=== PATIENT | female | born 1985 | race African-American/Black ===

== ENCOUNTER 2017-05-25 11:33 | Inpatient (IN) | payer OTHER ==
[~2017-05-25] VITALS: Ht 160 cm; Wt 72.6 kg
[2017-05-25 11:52] VITALS: BP 124/84
--- NOTE | 2017-05-25 12:43 | Diagnostic Imaging Report ---
Indication: Pain Technique: XRAY Chest 1v Comparison: None Findings: Heart size and mediastinal contours are within normal limits given technique. There is no focal consolidation, pneumothorax or pleural effusion. Osseous structures demonstrate no acute abnormality. Impression: No radiographic evidence of acute cardiopulmonary disease.
[2017-05-25 13:21] LABS: BASOPHILS % (AUTO) 1.3 % (0.0-2.0); EOSINOPHILS % (AUTO) 0.7 % (0.0-3.0); HEMATOCRIT 39.7 % (37.0-47.0); HEMOGLOBIN 13.6 G/DL (12.0-16.0); LYMPHOCYTES % (AUTO) 30.2 % (20.0-45.0); MEAN CORPUSCULAR VOLUME 86 FL (80-99); MONOCYTES % (AUTO) 8.4 % (1.0-10.0); NEUTROPHILS % (AUTO) 59.3 % (45.0-75.0); PLATELET COUNT 266 K/UL (150-450); RED BLOOD COUNT 4.63 M/UL (4.20-5.40); RED CELL DISTRIBUTION WIDTH 13.8 % (11.6-14.8)
[2017-05-25 13:22] LABS: APPEARANCE,URINE CLEAR; BILIRUBIN, URINE NEGATIVE (NEGATIVE); GLUCOSE, URINE (UA) NEGATIVE (NEGATIVE); KETONES,URINE NEGATIVE (NEGATIVE); LEUKOCYTE ESTERASE ,URINE 1+ (NEGATIVE); NITRITE,URINE NEGATIVE (NEGATIVE); PH,URINE 6 (4.5-8.0); PROTEIN,URINE NEGATIVE (NEGATIVE); UROBILINOGEN,URINE NORMAL MG/DL (0.0-1.0)
[2017-05-25 13:26] LABS: COLOR,URINE YELLOW
[2017-05-25 13:30] LABS: ANION GAP 7 mmol/L (5-15); BLOOD UREA NITROGEN 10 mg/dL (7-18); CALCIUM 9.3 MG/DL (8.5-10.1); CARBON DIOXIDE 28 MMOL/L (21-32); CHLORIDE 104 MMOL/L (98-107); CREATININE 0.8 MG/DL (0.55-1.30); POTASSIUM 3.5 MMOL/L (3.5-5.1); SODIUM 139 MMOL/L (136-145)
[2017-05-25 13:44] LABS: ALANINE AMINOTRANSFERASE 19 U/L (12-78); ALBUMIN 3.6 G/DL (3.4-5.0); ALBUMIN/GLOBULIN RATIO 0.9 (1.0-2.7); ALKALINE PHOSPHATASE 49 U/L (46-116); ASPARTATE AMINO TRANSFERASE 21 U/L (15-37); BILIRUBIN,TOTAL 0.3 MG/DL (0.2-1.0); CKMB < 0.5 NG/ML (0.0-3.6); CREATINE KINASE 170 U/L (26-308)
--- NOTE | 2017-05-25 14:39 | Emergency Room Report ---
History of Present Illness General Chief Complaint: Lower Back Pain or Injury Source: Patient Present Illness HPI Patient present with complaints of pain to the buttock area Patient had injections several years ago However recently has been having increased redness and discomfort Pain is 5/10 Denies any chest pressures of breath patient had questionable low-grade fevers Pain is worse with sitting denies any discharge denies any abdominal pain Denies any change with bowel movements Allergies: Coded Allergies: CLINDAMYCIN (Verified Allergy, Severe, Rash, 05/25/17) SULFAMETHOXAZOLE (Verified Allergy, Severe, Rash, 05/25/17) TRIMETHOPRIM (Verified Allergy, Severe, Rash, 05/25/17) Patient History Past Medical History: see triage record Pertinent Family History: none Last Menstrual Period: last month Now: No Reviewed Nursing Documentation: PMH: Agreed, PSxH: Agreed Nursing Documentation-PMH Past Medical History: No History, Except For Hx Asthma: Yes Review of Systems All Other Systems: negative except mentioned in HPI Physical Exam Vital Signs Date Time Temp Pulse Resp B/P (MAP) Pulse Ox O2 Delivery O2 Flow Rate FiO2 05/25/17 11:42 99.1 80 18 122/83 98 Room Air Sp02 EP Interpretation: reviewed, normal General Appearance: mild distress - Appears uncomfortable Head: normocephalic, atraumatic Eyes: bilateral eye PERRL, bilateral eye EOMI ENT: hearing grossly normal, normal pharynx, TMs + canals normal, uvula midline Neck: full range of motion, supple, no meningismus, no bony tend Respiratory: lungs clear, normal breath sounds, no rhonchi, no respiratory distress, no retraction, no accessory muscle use Cardiovascular #1: normal peripheral pulses, regular rate, rhythm, no edema, no gallop, no JVD, no murmur Gastrointestinal: normal bowel sounds, non tender, soft, no mass, no organomegaly, non-distended, no guarding, no hernia, no pulsatile mass, no rebound Genitourinary: no CVA tenderness Musculoskeletal: normal inspection Neurologic: oriented x3, responsive, insurance account executive III-XII nml as tested, motor strength/ tone normal, sensory intact Psychiatric: mood/affect normal Skin: other - Several areas of indurated to palpation buttock region on the right side, also the right hip area, erythema also seen Lymphatic: normal inspection, no adenopathy Medical Decision Making Diagnostic Impression: Primary Impression: Cellulitis Additional Impression: Abscess ER Course Patient's presentation is concerning for deep-seated infection Patient has extensive blood work and imaging initiated MRI to be followed as an inpatient baseline blood work were initiated Plastic surgery consult it and patient requires inpatient care for further eval Labs Test 05/25/17 12:25 05/25/17 18:30 05/26/17 05:00 White Blood Count 10.0 K/UL (4.8-10.8) 9.7 K/UL (4.8-10.8) 8.3 K/UL (4.8-10.8) Red Blood Count 4.63 M/UL (4.20-5.40) 4.40 M/UL (4.20-5.40) 4.42 M/UL (4.20-5.40) Hemoglobin 13.6 G/DL (12.0-16.0) 12.8 G/DL (12.0-16.0) 13.0 G/DL (12.0-16.0) Hematocrit 39.7 % (37.0-47.0) 38.0 % (37.0-47.0) 38.4 % (37.0-47.0) Mean Corpuscular Volume 86 FL (80-99) 86 FL (80-99) 87 FL (80-99) Mean Corpuscular Hemoglobin 29.4 PG (27.0-31.0) 29.1 PG (27.0-31.0) 29.5 PG (27.0-31.0) Mean Corpuscular Hemoglobin Concent 34.3 G/DL (32.0-36.0) 33.7 G/DL (32.0-36.0) 33.9 G/DL (32.0-36.0) Red Cell Distribution Width 13.8 % (11.6-14.8) 13.3 % (11.6-14.8) 13.9 % (11.6-14.8) Platelet Count 266 K/UL (150-450) 242 K/UL (150-450) 221 K/UL (150-450) Mean Platelet Volume 9.1 FL (6.5-10.1) 8.4 FL (6.5-10.1) 8.3 FL (6.5-10.1) Neutrophils (%) (Auto) 59.3 % (45.0-75.0) 54.3 % (45.0-75.0) 56.4 % (45.0-75.0) Lymphocytes (%) (Auto) 30.2 % (20.0-45.0) 34.4 % (20.0-45.0) 36.1 % (20.0-45.0) Monocytes (%) (Auto) 8.4 % (1.0-10.0) 8.6 % (1.0-10.0) 5.2 % (1.0-10.0) Eosinophils (%) (Auto) 0.7 % (0.0-3.0) 1.0 % (0.0-3.0) 1.1 % (0.0-3.0) Basophils (%) (Auto) 1.3 % (0.0-2.0) 1.7 % (0.0-2.0) 1.3 % (0.0-2.0) Urine Color Yellow Urine Appearance Clear Urine pH 6 (4.5-8.0) Urine Specific [place] 1.020 (1.005-1.035) Urine Protein Negative (NEGATIVE) Urine Glucose (UA) Negative (NEGATIVE) Urine Ketones Negative (NEGATIVE) Urine Occult Blood Negative (NEGATIVE) Urine Nitrite Negative (NEGATIVE) Urine Bilirubin Negative (NEGATIVE) Urine Urobilinogen Normal MG/DL (0.0-1.0) Urine Leukocyte Esterase 1+ (NEGATIVE) Urine RBC 0-2 /HPF (0 - 2) Urine WBC 2-4 /HPF (0 - 2) Urine Squamous Epithelial Cells Few /LPF (NONE/OCC) Urine Bacteria Few /HPF (NONE) Urine Mucus Few /LPF (NONE/OCC) Urine HCG, Qualitative Negative Sodium Level 139 MMOL/L (136-145) Potassium Level 3.5 MMOL/L (3.5-5.1) Chloride Level 104 MMOL/L (98-107) Carbon Dioxide Level 28 MMOL/L (21-32) Anion Gap 7 mmol/L (5-15) Blood Urea Nitrogen 10 mg/dL (7-18) Creatinine 0.8 MG/DL (0.55-1.30) Estimat Glomerular Filtration Rate > 60 mL/min (>60) Glucose Level 71 MG/DL (74-106) Lactic Acid Level 0.70 mmol/L (0.66-2.22) Calcium Level 9.3 MG/DL (8.5-10.1) Total Bilirubin 0.3 MG/DL (0.2-1.0) Aspartate Amino Transf (AST/SGOT) 21 U/L (15-37) Alanine Aminotransferase (ALT/SGPT) 19 U/L (12-78) Alkaline Phosphatase 49 U/L (46-116) Total Creatine Kinase 170 U/L (26-308) Creatine Kinase MB < 0.5 NG/ML (0.0-3.6) Creatine Kinase MB Relative Index 0.2 Total Protein 7.5 G/DL (6.4-8.2) Albumin 3.6 G/DL (3.4-5.0) Globulin 3.9 g/dL Albumin/Globulin Ratio 0.9 (1.0-2.7) Lipase 116 U/L (73-393) Erythrocyte Sedimentation Rate 15 MM/HR (0-20) C-Reactive Protein, Quantitative 0.8 mg/dL (0.00-0.90) Rhythm Strip Diag. Results EP Interpretation: yes Rate: 88 Rhythm: NSR, no PVC's, no ectopy Chest X-Ray Diagnostic Results Chest X-Ray Diagnostic Results : Chest X-Ray Ordered: Yes # of Views/Limited/Complete: 1 View Indication: Other - preop EP Interpretation: Yes Interpretation: no consolidation, no effusion, no pneumothorax, no acute cardiopulmonary disease Impression: No acute disease Electronically Signed by: Melvin Wallace DO Last Vital Signs Date Time Temp Pulse Resp B/P (MAP) Pulse Ox O2 Delivery O2 Flow Rate FiO2 05/25/17 11:52 99.1 72 17 124/84 100 Room Air Status: improved Disposition: ADMITTED INPATIENT Condition: Serious Referrals: NON PHYSICIAN (PCP) MELVIN WALLACE D.O. May 25, 2017 14:39
[2017-05-25 15:13] VITALS: BP 124/83
[2017-05-25] MEDS ORDERED: ALBUTEROL SULF8.5 GM INH (15:40)
--- NOTE | 2017-05-25 15:40 | Diagnostic Imaging Report ---
Indication: Reason For Exam: PAIN//cosmetic silicon injection Technique: Noncontrast MRI of the pelvis obtained in multisequence, multiplanar acquisition obtaining the following sequences: 3 plane localizer, coronal T1 FSE, coronal FSE inversion recovery, axial T1 FSE, axial STIR FSE, axial T2 FR FSE, axial T2 FR FSE fat sat, sagittal T2 FR FSE fat sat Comparison: none Findings: Multiple rounded T2 hyperintense structures are noted within the gluteal soft tissues consistent with given history of cosmetics silicon injection. There is some surrounding STIR signal hyperintensity possibly edema or inflammation. No well-defined/drainable fluid collection to suggest abscess however evaluation is limited without the use of intravenous contrast. The majority of these likely silicone deposits are noted posteriorly and laterally, with some noted anteriorly and within bilateral inguinal regions, left greater than right. There is no evidence of migration into the visceral pelvis. There is fluid in the endometrial canal and trace free pelvic fluid. These findings are likely physiologic. There is a probable small nabothian cyst and probable small uterine fibroids. These findings should be confirmed on transvaginal ultrasound. No bony marrow signal abnormality. IMPRESSION: Multiple rounded structures predominantly in the posterior gluteal soft tissues consistent with given history of cosmetic silicone injection. Mild surrounding STIR signal hyperintensity possibly reactive however infection or inflammation not entirely excluded. Correlate with physical exam to exclude the possibility of cellulitis. No definite/drainable fluid collection to suggest abscess however evaluation limited without the use of intravenous contrast. Probable small uterine fibroids and nabothian cysts. Confirmation with dedicated pelvic ultrasound recommended.
--- NOTE | 2017-05-25 15:48 | History & Physical ---
History and Physical History & Physicial dictated [id number] KANCHAN CHOUDHURY M.D. May 25, 2017 15:48
--- NOTE | 2017-05-25 15:48 | Diagnostic Imaging Report ---
Indication: Reason For Exam: Back pain. Technique: Sagittal T1 and T2 fast spin echo, sagittal STIR, axial T1 and T2 fast spin-echo images of the lumbar spine Comparison: none Findings: 5 lumbar-type nonrib-bearing vertebral bodies, assuming 12 paired ribs. The tip of the conus terminates at the level of L1. No focal cord signal abnormality appreciated. No focal bone marrow signal abnormality is seen. Lumbar lordosis is maintained. There is no acute fracture. No evidence of spondylolisthesis. There is no central canal stenosis or foraminal narrowing. No degenerative change. Imaged kidneys, bowel and vasculature are grossly unremarkable. Multiple small follicles noted in the right ovary. Probable small nabothian cyst noted in the cervix. There is trace free pelvic fluid. Multiple rounded T1 hypointense/T2 hyperintense structure is noted in the posterior gluteal soft tissues compatible with given history of cosmetic silicon injection. IMPRESSION: No evidence of acute fracture or traumatic malalignment. No spinal stenosis or foraminal narrowing. Findings consistent with given history of cosmetic silicone injection as described in dedicated report of MRI of the pelvis.
[2017-05-25] MEDS ORDERED: Morphine Sulfate 4mg/ml Inj IVP PRN (16:00)
[2017-05-25] MEDS ORDERED: Morphine Sulfate 2mg/ml Inj IVP PRN (16:00)
[2017-05-25] MEDS ORDERED: Unasyn 3gm Inj IM ONE (18:00)
[2017-05-25] MEDS: LR 1000ml 1,000 ML IVLG SCH (18:54)
[2017-05-25] MEDS: Unasyn 3gm in NS 110ml IVPB SCH (18:55)
[2017-05-25 19:15] LABS: BASOPHILS % (AUTO) 1.7 % (0.0-2.0); HEMOGLOBIN 12.8 G/DL (12.0-16.0); LYMPHOCYTES % (AUTO) 34.4 % (20.0-45.0); MEAN CORPUSCULAR VOLUME 86 FL (80-99); MONOCYTES % (AUTO) 8.6 % (1.0-10.0); NEUTROPHILS % (AUTO) 54.3 % (45.0-75.0); PLATELET COUNT 242 K/UL (150-450); RED CELL DISTRIBUTION WIDTH 13.3 % (11.6-14.8); WHITE BLOOD COUNT 9.7 K/UL (4.8-10.8)
[2017-05-25 19:28] VITALS: BP 118/76
[2017-05-25 20:00] VITALS: BP 106/74
[2017-05-25] MEDS: Docusate 100mg cap ORAL SCH (20:45)
--- NOTE | 2017-05-25 20:45 | History and Physical Report ---
DATE OF ADMISSION: 05/25/2017 CHIEF COMPLAINT: Lower back and buttock pain that is progressively worsening. HISTORY OF PRESENT ILLNESS: This is a 31-year-old female with history of silicon injections in the gluteal region bilaterally in 2012 and history of asthma who presents to emergency room with worsening pain over her lower back, legs and buttocks region. She states the pain is 5/10 in intensity. She does have an increased redness and discomfort over the buttock and bilateral hip region. This pain is progressively becoming worse. She denies any shortness of breath or chest pain. PAST MEDICAL HISTORY: Asthma. PAST SURGICAL HISTORY: Silicon injection of the buttock as well as . MEDICATIONS: Reviewed the patient only takes albuterol as needed. ALLERGIES: Bactrim and clindamycin. SOCIAL HISTORY: The patient does not smoke. Does drink alcohol occasionally. No drugs. FAMILY HISTORY: Noncontributory. REVIEW OF SYSTEMS: A 12-point review of systems is negative except for pertinent positives as mentioned above. PHYSICAL EXAMINATION: GENERAL: No acute distress. The patient is alert, awake and oriented x3. VITAL SIGNS: Temperature 99.1 degrees, pulse is 80, respiratory rate 18, blood pressure 122/83, O2 saturation is 98% on room air. HEENT: Normocephalic/atraumatic. NECK: Supple. No JVD. LUNGS: Clear to auscultation bilaterally. No crackles, rhonchi, or rales. CARDIOVASCULAR: Regular rate and rhythm. Normal S1 and S2. ABDOMEN: Soft, nontender, and nondistended. EXTREMITIES: No clubbing, cyanosis, or edema. Buttocks are firm. There is very mild redness of both buttock gluteals. Tenderness to palpation especially over the hip region. EXTREMITIES: No clubbing, cyanosis, or edema. SKIN: The patient has indurated areas, but tender to palpation over the buttock in the right side more than the left side. LABORATORY AND DIAGNOSTIC DATA: CBC, white count of 10, hemoglobin of 13.6, and platelet count 256. BMP, sodium 139, potassium 3.5, chloride 104, CO2 28, BUN 10 and creatinine 0.8. LFTs are within normal limits. Imaging, MRI of the pelvis suggest multiple rounded structures dominant posterior gluteal soft tissues consistent with given history of cosmetic silicon injection with mild surrounding STIR signal, possible reactive, however, is not entirely excluded. Correlate with physical exam to exclude cellulitis. Small uterine fibroids. Chest x-ray shows no acute process. ASSESSMENT: 1. Gluteal tissue necrosis with probable underlying cellulitis. 2. History of asthma. PLAN: 1. The patient to be admitted to Med/Surg. 2. The patient is to be followed up by with plastic surgery for debridement tomorrow morning. NPO past midnight. 3. Unasyn 3 grams IV q.6 h. 4. Type and cross. 5. Check ESR, CITLALY, immunofixation electrophoresis, rheumatoid factor, T-cell subset, Sjogren's SSA/SSB, lupus anticoagulant, CH 50, and CRP. 6. IV hydration. 7. Albuterol as needed. 8. DVT prophylaxis with SCDs. Tremaine Welsh MD DR: KRISTEN JOB#: [id number] CC:
[2017-05-26] VITALS (16 sets, daily range): BP systolic 98–130; BP diastolic 54–89
[2017-05-26] MEDS: Unasyn 3gm in NS 110ml IVPB SCH ×3 (01:23→12:30)
[2017-05-26] MEDS: LR 1000ml 1,000 ML IVLG SCH ×2 (02:00→05:54)
[2017-05-26 06:35] LABS: BASOPHILS % (AUTO) 1.3 % (0.0-2.0); EOSINOPHILS % (AUTO) 1.1 % (0.0-3.0); HEMATOCRIT 38.4 % (37.0-47.0); LYMPHOCYTES % (AUTO) 36.1 % (20.0-45.0); MEAN CORPUSCULAR VOLUME 87 FL (80-99); MONOCYTES % (AUTO) 5.2 % (1.0-10.0); NEUTROPHILS % (AUTO) 56.4 % (45.0-75.0); PLATELET COUNT 221 K/UL (150-450); RED BLOOD COUNT 4.42 M/UL (4.20-5.40); RED CELL DISTRIBUTION WIDTH 13.9 % (11.6-14.8); WHITE BLOOD COUNT 8.3 K/UL (4.8-10.8)
[2017-05-26 07:09] LABS: ANION GAP 5 mmol/L (5-15); BLOOD UREA NITROGEN 11 mg/dL (7-18); CALCIUM 8.4 MG/DL (8.5-10.1); CARBON DIOXIDE 27 MMOL/L (21-32); CHLORIDE 107 MMOL/L (98-107); CREATININE 0.7 MG/DL (0.55-1.30); POTASSIUM 3.7 MMOL/L (3.5-5.1); SODIUM 139 MMOL/L (136-145)
[2017-05-26] MEDS: Docusate 100mg cap ORAL SCH ×2 (09:00→21:33)
--- NOTE | 2017-05-26 11:16 | General Progress Note ---
KANCHAN CHOUDHURY M.D. May 26, 2017 11:16
--- NOTE | 2017-05-26 11:19 | Internal Med Progress Note ---
Subjective Physician Name Tremaine Choudhury Attending Physician Tremaine Choudhury M.D. Current Medications Medications (Trade) Dose Ordered Sig/Bernie Route PRN Reason Start Time Stop Time Status Last Admin Dose Admin Acetaminophen (Tylenol) 650 mg Q4H PRN ORAL Mild Pain (Pain Scale 1-3) 05/25/17 16:00 06/24/17 15:59 Albuterol Sulfate (Proventil) 2.5 mg QIDPRN PRN HHN Shortness of Breath 05/25/17 16:00 05/30/17 15:59 Ampicillin Sodium/ Sulbactam Sodium 3 gm/Sodium Chloride 110 ml @ 220 mls/hr Q6HR IVPB 05/25/17 18:30 06/01/17 18:29 05/26/17 05:50 Dextrose (Dextrose 50%) STAT PRN IV Hypoglycemia 05/25/17 16:00 06/24/17 15:59 Docusate Sodium (Colace) 100 mg EVERY 12 HOURS ORAL 05/25/17 21:00 06/24/17 20:59 05/25/17 20:45 Lactated Ringer's 1,000 ml @ 125 mls/hr Q8H IVLG 05/25/17 18:00 06/24/17 17:59 05/26/17 05:54 Morphine Sulfate (Morphine Sulfate) 2 mg EVERY 4 HOURS PRN IVP Moderate Pain (Pain Scale 4-6) 05/25/17 16:00 06/01/17 15:59 Morphine Sulfate (Morphine Sulfate) 4 mg EVERY 4 HOURS PRN IVP Severe Pain (Pain Scale 7-10) 05/25/17 16:00 06/01/17 15:59 05/25/17 18:11 Ondansetron HCl (Zofran) 4 mg Q6H PRN IVP Nausea & Vomiting 05/25/17 16:00 06/24/17 15:59 Allergies: Coded Allergies: CLINDAMYCIN (Verified Allergy, Severe, Rash, 05/25/17) SULFAMETHOXAZOLE (Verified Allergy, Severe, Rash, 05/25/17) TRIMETHOPRIM (Verified Allergy, Severe, Rash, 05/25/17) All Systems: reviewed and negative except above - NPO Objective Last Vital Signs Date Time Temp Pulse Resp B/P (MAP) Pulse Ox O2 Delivery O2 Flow Rate FiO2 05/26/17 08:00 97.7 65 19 103/60 100 05/26/17 04:00 Room Air General Appearance: no apparent distress, alert EENT: PERRL/EOMI, normal ENT inspection Neck: normal alignment, supple Cardiovascular: normal rate, regular rhythm Respiratory/Chest: lungs clear, normal breath sounds Abdomen: non tender, soft Extremities: normal range of motion, non-tender Neurologic: alert, oriented x 3 Skin: normal pigmentation, warm/dry Laboratory Tests Test 05/25/17 12:25 05/25/17 18:30 05/26/17 05:00 White Blood Count 10.0 K/UL (4.8-10.8) Pending 8.3 K/UL (4.8-10.8) Red Blood Count 4.63 M/UL (4.20-5.40) 4.40 M/UL (4.20-5.40) 4.42 M/UL (4.20-5.40) Hemoglobin 13.6 G/DL (12.0-16.0) 12.8 G/DL (12.0-16.0) 13.0 G/DL (12.0-16.0) Hematocrit 39.7 % (37.0-47.0) 38.0 % (37.0-47.0) 38.4 % (37.0-47.0) Mean Corpuscular Volume 86 FL (80-99) 86 FL (80-99) 87 FL (80-99) Mean Corpuscular Hemoglobin 29.4 PG (27.0-31.0) 29.1 PG (27.0-31.0) 29.5 PG (27.0-31.0) Mean Corpuscular Hemoglobin Concent 34.3 G/DL (32.0-36.0) 33.7 G/DL (32.0-36.0) 33.9 G/DL (32.0-36.0) Red Cell Distribution Width 13.8 % (11.6-14.8) 13.3 % (11.6-14.8) 13.9 % (11.6-14.8) Platelet Count 266 K/UL (150-450) 242 K/UL (150-450) 221 K/UL (150-450) Mean Platelet Volume 9.1 FL (6.5-10.1) 8.4 FL (6.5-10.1) 8.3 FL (6.5-10.1) Neutrophils (%) (Auto) 59.3 % (45.0-75.0) 54.3 % (45.0-75.0) 56.4 % (45.0-75.0) Lymphocytes (%) (Auto) 30.2 % (20.0-45.0) 34.4 % (20.0-45.0) 36.1 % (20.0-45.0) Monocytes (%) (Auto) 8.4 % (1.0-10.0) 8.6 % (1.0-10.0) 5.2 % (1.0-10.0) Eosinophils (%) (Auto) 0.7 % (0.0-3.0) 1.0 % (0.0-3.0) 1.1 % (0.0-3.0) Basophils (%) (Auto) 1.3 % (0.0-2.0) 1.7 % (0.0-2.0) 1.3 % (0.0-2.0) Urine Color Yellow Urine Appearance Clear Urine pH 6 (4.5-8.0) Urine Specific [place] 1.020 (1.005-1.035) Urine Protein Negative (NEGATIVE) Urine Glucose (UA) Negative (NEGATIVE) Urine Ketones Negative (NEGATIVE) Urine Occult Blood Negative (NEGATIVE) Urine Nitrite Negative (NEGATIVE) Urine Bilirubin Negative (NEGATIVE) Urine Urobilinogen Normal MG/DL (0.0-1.0) Urine Leukocyte Esterase 1+ (NEGATIVE) H Urine RBC 0-2 /HPF (0 - 2) Urine WBC 2-4 /HPF (0 - 2) Urine Squamous Epithelial Cells Few /LPF (NONE/OCC) Urine Bacteria Few /HPF (NONE) Urine Mucus Few /LPF (NONE/OCC) H Urine HCG, Qualitative Negative Sodium Level 139 MMOL/L (136-145) 139 MMOL/L (136-145) Potassium Level 3.5 MMOL/L (3.5-5.1) 3.7 MMOL/L (3.5-5.1) Chloride Level 104 MMOL/L (98-107) 107 MMOL/L (98-107) Carbon Dioxide Level 28 MMOL/L (21-32) 27 MMOL/L (21-32) Anion Gap 7 mmol/L (5-15) 5 mmol/L (5-15) Blood Urea Nitrogen 10 mg/dL (7-18) 11 mg/dL (7-18) Creatinine 0.8 MG/DL (0.55-1.30) 0.7 MG/DL (0.55-1.30) Estimat Glomerular Filtration Rate > 60 mL/min (>60) > 60 mL/min (>60) Glucose Level 71 MG/DL (74-106) L 78 MG/DL (74-106) Lactic Acid Level 0.70 mmol/L (0.66-2.22) Calcium Level 9.3 MG/DL (8.5-10.1) 8.4 MG/DL (8.5-10.1) L Total Bilirubin 0.3 MG/DL (0.2-1.0) Aspartate Amino Transf (AST/SGOT) 21 U/L (15-37) Alanine Aminotransferase (ALT/SGPT) 19 U/L (12-78) Alkaline Phosphatase 49 U/L (46-116) Total Creatine Kinase 170 U/L (26-308) Creatine Kinase MB < 0.5 NG/ML (0.0-3.6) Creatine Kinase MB Relative Index 0.2 Total Protein 7.5 G/DL (6.4-8.2) Albumin 3.6 G/DL (3.4-5.0) Globulin 3.9 g/dL Albumin/Globulin Ratio 0.9 (1.0-2.7) L Lipase 116 U/L (73-393) Lymphocytes Pending Erythrocyte Sedimentation Rate 15 MM/HR (0-20) Lupus Anticoagulant Pending Lupus Anticoagulant PTT Baseline Pending Lupus Anticoag DRVVT Screen Ratio Pending DRVVT Confirmation Interpretation Pending Hexagonal Phase Comment Pending C-Reactive Protein, Quantitative 0.8 mg/dL (0.00-0.90) Immunoglobulin G Pending Immunoglobulin A Pending Immunoglobulin M Pending Immunofixation Screen Pending Rheumatoid Factor Screen Pending Anti-Nuclear Antibody Screen Pending SS-A/Ro Antibody Pending SS-B/La Antibody Pending Total Complement (CH50) Pending Percent CD3 Cells Pending Absolute CD3 Count Pending Percent CD4 Cells Pending Absolute CD4 Count Pending T-Lymphocyte CD4/CD8 Ratio Pending Percent CD8 Cells Pending Absolute CD8 Count Pending Intake and Output 05/25/17 05/26/17 19:00 07:00 Intake Total 1650 ml Balance 1650 ml Intake Oral 480 ml IV Total 1170 ml # Voids 1 3 Assessment/Plan Assessment/Plan ASSESSMENT: 1. Gluteal tissue necrosis with probable underlying cellulitis. 2. History of asthma. PLAN: 1. Medsurg 2. Plastic surgery consulted for possible emergent surgical intervention 3. Unasyn 3 grams IV q.6 h. 4. Type and cross 2 units 5. Check ESR, CITLALY, immunofixation electrophoresis, rheumatoid factor, T-cell subset, Sjogren's SSA/SSB, lupus anticoagulant, CH 50, and CRP. 6. IV hydration - LR @ 125 cc/hr 7. Albuterol as needed. 8. DVT prophylaxis with SCDs. TREMAINE CHOUDHURY M.D. May 26, 2017 11:18
[2017-05-26] MEDS ORDERED: NS Irrig 1000ml ONE (13:00)
[2017-05-26] MEDS ORDERED: Propofol 200mg/20ml IV ONE (13:00)
[2017-05-26] MEDS ORDERED: LR 1000ml ONE (13:00)
[2017-05-26] MEDS ORDERED: Neostigmine 1mg/ml 10ml Inj ONE (13:00)
[2017-05-26] MEDS ORDERED: Succinylcholine 20mg/ml 10ml vial ONE (13:00)
[2017-05-26] MEDS ORDERED: Zemuron 50mg/5ml Inj IV ONE (13:00)
[2017-05-26] MEDS ORDERED: fentaNYL 100 mcg/2 mL IV ONE (13:00)
[2017-05-26] MEDS ORDERED: Glycopyrrolate 0.2mg/ml 1ml Vial ONE (13:00)
[2017-05-26] MEDS ORDERED: Sterile Water Irrig 1000ml IRRIG ONE (13:00)
[2017-05-26] MEDS ORDERED: Midazolam 2mg/2ml Inj ONE ×2 (13:00)
[2017-05-26] MEDS ORDERED: Morphine Sulfate 10mg/ml Inj ONE (13:00)
[2017-05-26] MEDS ORDERED: Ketorolac 30mg Inj ONE (13:00)
--- NOTE | 2017-05-26 13:12 | Pre-Procedure Note/Attestation ---
Pre-Procedure Note/Attestation Complete Prior to Procedure Planned Procedure: bilateral Procedure Narrative: staged debridement of b/l buttock and back necrotic soft tissue, flap delay, wound vac placement Indications for Procedure Pre-Operative Diagnosis: b/l buttock and back necrotic soft tissue, cellulitis Attestation I attest that I discussed the nature of the procedure; its benefits; risks and complications; and alternatives (and the risks and benefits of such alternatives ), prior to the procedure, with the patient (or the patient's legal customer support representative). I attest that, if there was a reasonable possibility of needing a blood transfusion, the patient (or the patient's legal customer support representative) was given the [place] [employer] [facility] [employer] [facility] standardized written summary, pursuant to the [place] Blood Safety Act ([place] Health and Safety Code # 1645, as amended). I attest that I re-evaluated the patient just prior to the surgery and that there has been no change in the patient's H&P, except as documented below: Brian Zapien M.D. May 26, 2017 13:12
[2017-05-26] MEDS ORDERED: DiphenhydrAMINE 50mg/ml Inj IVP PRN ×2 (13:15→14:45)
[2017-05-26] MEDS ORDERED: Rate Change PCA 1 Each MISC PRN (13:15)
[2017-05-26] MEDS ORDERED: LORazepam 1mg tab ORAL PRN (13:15)
[2017-05-26] MEDS ORDERED: Naloxone 0.4mg/ml Inj IVP PRN (13:15)
[2017-05-26] MEDS ORDERED: Bacitracin 50000 Units Vial ONE (13:16)
[2017-05-26] MEDS ORDERED: Heparin 5000 units/ml inj ONE (13:16)
[2017-05-26] MEDS ORDERED: TransDerm Scop 1mg/72HR Patch TDERMAL ONE (13:20)
[2017-05-26] MEDS ORDERED: LR 1000ml 1,000 ML IVLG SCH (14:39)
--- NOTE | 2017-05-26 14:39 | Anethesia Preoperative Eval ---
Anesthesia Pre-op PMH/ROS General Date of Evaluation: May 26, 2017 Time of Evaluation: 13:12 Anesthesiologist: Niki ASA Score: ASA 2 Mallampati Score Class I : Soft palate, uvula, fauces, pillars visible Class II: Soft palate, uvula, fauces visible Class III: Soft palate, base of uvula visible Class IV: Only hard plate visible Mallampati Classification: Class II Surgeon: Curry Diagnosis: Lower back pain Surgical Procedure: Excision of bilateral lower back necrotic tissues Anesthesia History: none Family History: no anesthesia problems Allergies: Coded Allergies: CLINDAMYCIN (Verified Allergy, Severe, Rash, 05/25/17) SULFAMETHOXAZOLE (Verified Allergy, Severe, Rash, 05/25/17) TRIMETHOPRIM (Verified Allergy, Severe, Rash, 05/25/17) Past Medical History Cardiovascular: Denies: HTN, CAD, UT, valve dz, arrhythmia, other Pulmonary: Reports: asthma - mild, Denies: COPD, JP, other Gastrointestinal/Genitourinary: Reports: GERD, Denies: CRI, ESRD, other Neurologic/Psychiatric: Reports: depression/anxiety, Denies: dementia, CVA, TIA, other Endocrine: Denies: DM, hypothyroidism, steroids, other HEENT: Denies: cataract (L), cataract (R), glaucoma, HUSLIA (L), HUSLIA (R), other Hematology/Immune: Reports: anemia - mild, Denies: DVT, bleeding disorder, other Musculoskeletal/Integumentary: Denies: OA, RA, DJD, DDD, edema, other PMH Narrative: as above PSxH Narrative: C section Anesthesia Pre-op Phys. Exam Physician Exam Last Vital Signs Date Time Temp Pulse Resp B/P (MAP) Pulse Ox O2 Delivery O2 Flow Rate FiO2 05/26/17 12:00 97.9 80 20 108/70 99 05/26/17 04:00 Room Air Constitutional: NAD Neurologic: CN 2-12 intact Cardiovascular: RRR, no M/R/G Respiratory: CTA Gastrointestinal: S/NT/ND Airway Exam Mallampati Score: Class II MO: full Neck: flexible ROM: full Teeth: intact Dentures: no upper, no lower Anesthesia Pre-op A/P Labs Hematology Test 05/25/17 18:30 05/26/17 05:00 White Blood Count Pending 8.3 K/UL (4.8-10.8) Red Blood Count 4.40 M/UL (4.20-5.40) 4.42 M/UL (4.20-5.40) Hemoglobin 12.8 G/DL (12.0-16.0) 13.0 G/DL (12.0-16.0) Hematocrit 38.0 % (37.0-47.0) 38.4 % (37.0-47.0) Mean Corpuscular Volume 86 FL (80-99) 87 FL (80-99) Mean Corpuscular Hemoglobin 29.1 PG (27.0-31.0) 29.5 PG (27.0-31.0) Mean Corpuscular Hemoglobin Concent 33.7 G/DL (32.0-36.0) 33.9 G/DL (32.0-36.0) Red Cell Distribution Width 13.3 % (11.6-14.8) 13.9 % (11.6-14.8) Platelet Count 242 K/UL (150-450) 221 K/UL (150-450) Mean Platelet Volume 8.4 FL (6.5-10.1) 8.3 FL (6.5-10.1) Neutrophils (%) (Auto) 54.3 % (45.0-75.0) 56.4 % (45.0-75.0) Lymphocytes (%) (Auto) 34.4 % (20.0-45.0) 36.1 % (20.0-45.0) Monocytes (%) (Auto) 8.6 % (1.0-10.0) 5.2 % (1.0-10.0) Eosinophils (%) (Auto) 1.0 % (0.0-3.0) 1.1 % (0.0-3.0) Basophils (%) (Auto) 1.7 % (0.0-2.0) 1.3 % (0.0-2.0) Lymphocytes Pending Erythrocyte Sedimentation Rate 15 MM/HR (0-20) Coagulation Test 05/25/17 18:30 Lupus Anticoagulant Pending Lupus Anticoagulant PTT Baseline Pending Lupus Anticoag DRVVT Screen Ratio Pending DRVVT Confirmation Interpretation Pending Hexagonal Phase Comment Pending Chemistry Test 05/25/17 18:30 2/9/18 05:00 C-Reactive Protein, Quantitative 0.8 mg/dL (0.00-0.90) Sodium Level 139 MMOL/L (136-145) Potassium Level 3.7 MMOL/L (3.5-5.1) Chloride Level 107 MMOL/L (98-107) Carbon Dioxide Level 27 MMOL/L (21-32) Anion Gap 5 mmol/L (5-15) Blood Urea Nitrogen 11 mg/dL (7-18) Creatinine 0.7 MG/DL (0.55-1.30) Estimat Glomerular Filtration Rate > 60 mL/min (>60) Glucose Level 78 MG/DL (74-106) Calcium Level 8.4 MG/DL (8.5-10.1) L Risk Assessment & Plan Assessment: ASA 2 Plan: GA with ETT prone position, intraoperative blood transfusion. Status Change Before Surgery: No Pre-Antibiotics Drug: Ancef 1 gr. Given Within 1 Hr of Incision: Yes Time Given: 14:05 EDNA JASON M.D. May 26, 2017 14:39
[2017-05-26] MEDS ORDERED: Hydromorphone 0.5mg/0.5ml inj IVP PRN (14:45)
[2017-05-26] MEDS ORDERED: Ketorolac 30mg Inj IV PRN (14:45)
[2017-05-26] MEDS ORDERED: Meperidine 50mg/ml Inj(FOR RIGORS ONLY) IV PRN ×2 (14:45)
[2017-05-26] MEDS ORDERED: Midazolam 2mg/2ml Inj IVP PRN (14:45)
--- NOTE | 2017-05-26 16:24 | Operative Note - PDOC ---
Operative Note Operative Note Date of Operation/Procedure: May 26, 2017 Pre-op Diagnosis: b/l buttock and back necrotic soft tissue, cellulitis Procedure: staged debridement of b/l buttock and back necrotic soft tissue, flap delay and wound vac placement Post-op Diagnosis: same Post-op Diagnosis: same as pre-op Surgeon: jenifer Pastry Finisher: manish Anesthesiologist: shahab Anesthesia: general Specimen: yes - b/l buttocks and back necrotic soft tissues Complications: none Condition: stable Estimated Blood Loss: volume - 600 Drains: wound vac Implant(s) used?: No Indications for Procedure b/l buttock and back necrotic soft tissue, cellulitis Description of Procedure see op note Brian Zapien M.D. May 26, 2017 16:23
--- NOTE | 2017-05-26 16:38 | Cardiology Report ---
APPROVED REPORT EKG Measurement Heart [id number] Normal sinus rhythm Normal ECG
--- NOTE | 2017-05-26 17:31 | Immediate Post-Op Evaluation ---
Immediate Post-Op Evalulation Immediate Post-Op Evalulation Procedure: Bilateral excision of necrotic tissue lower back Date of Evaluation: May 26, 2017 Time of Evaluation: 16:40 IV Fluids: 1500 Blood Products: 1 unit PRBC Estimated Blood Loss: 500 Urinary Output: 150 Blood Pressure Systolic: 116 Blood Pressure Diastolic: 54 Pulse Rate: 72 Respiratory Rate: 20 O2 Sat by Pulse Oximetry: 99 Temperature (Fahrenheit): 98.3 Pain Score (1-10): 2 Nausea: No Vomiting: No Complications none Patient Status: reacts, patent, extubated, none Hydration Status: adequate EDNA JASON M.D. May 26, 2017 17:31
[2017-05-26] MEDS: PCA HYDROmorphone 1mg/ml 30 ML IV PRN (18:09)
[2017-05-26] MEDS: PCA shift volume MISC SCH (19:00)
[2017-05-26] MEDS: PCA Education Pamphlet MISC SCH (19:50)
[2017-05-26] MEDS: Ampicillin/Sulbactam Sod 3 GM in NS 110 ML IVPB SCH (21:33)
[2017-05-26] MEDS: LR 1000ml 1,000 ML IV SCH (21:37)
[2017-05-26] MEDS: Heparin 5000 units/ml inj SUBQ SCH (21:41)
--- NOTE | 2017-05-26 22:45 | Consultation ---
DATE OF CONSULTATION: 05/26/2017 SURGEON: Brian Zapien M.D. HISTORY OF PRESENT ILLNESS: This is a 31-year-old female, who presented to the emergency room at [facility] yesterday complaining of severe bilateral buttock and back pains, burning and itching, as well as fevers and chills, redness and warmth of bilateral buttocks over the past few days as well as paresthesias and numbness in the bilateral legs. The patient has a history of injections to bilateral buttocks and hips of some foreign material likely silicone several years ago. The patient has had intermittent problems over the past few years that has now worsening. I was consulted by the medical team, who the patient was admitted under for bilateral buttock cellulitis and soft tissue necrosis as well as retractable back and buttock pain. I was thus called in an emergent manner and this is why I came in to evaluate and treat the patient. PHYSICAL EXAMINATION: PELVIC: The patient has significantly tender, red, and warm bilateral buttocks, left inguinal lymphadenopathy, tender and painful nodules in bilateral buttocks and back, multiple ones. There was some hyperpigmentation and patchy skin and there is erythema and warmth of bilateral buttocks consistent with early cellulitis. BACK: The lumbar back was also tender to palpation. There was a masslike fluctuant area underneath it. NEUROLOGIC: The patient complained of significant limitations in ambulation and significant pain with sitting as well as paresthesias and acute numbness of both legs, the left greater than the right. The patient also had complained of systemic symptoms such as fatigue and low energy as well as her hands falling asleep at nighttime consistent with carpal tunnel syndrome. DIAGNOSTIC DATA: The patient had MRIs of the lumbar spine and the pelvis done in the emergency room, which showed significant infiltration of the soft tissues and soft tissue necrosis of bilateral buttocks, anterior hips, and lumbar spine soft tissue and involving both bilateral gluteus jose muscles and migrating up to the level of the L2 of the spine. The patient had blood work to rule out Jesica syndrome and has been treated for intravenous antibiotics for cellulitis. I explained to the patient. Based on the MRIs and physical exam, I recommended a stage surgical emergent debridement of soft tissues of bilateral buttocks and back with a wound VAC in between operations followed by closure over drains. I explained to the patient that this is likely the inciting cause of recurrent infections and incapacitating pain and the paresthesias, for which she presented to the emergency room. The patient elected to proceed with surgery. I will dictate a separate operative report. Brian Zapien M.D. DR: ELIZABETH JOB#: [id number] CC: NING
[2017-05-27] VITALS: BP 97/59
--- NOTE | 2017-05-27 05:00 | Operative Note - Dictated ---
DATE OF OPERATION: 05/26/2017 SURGEON: Brian Zapien M.D. FILE SYSTEM INSTALLER SURGEON: Ovidio Caldera M.D. ANESTHESIOLOGIST: Carson Prince M.D. ANESTHESIA: General endotracheal tube anesthesia. PREOPERATIVE DIAGNOSES: As follows: 1. Bilateral buttock, hip, and back soft tissue necrosis secondary to foreign body reaction. 2. Cellulitis of bilateral buttocks. POSTOPERATIVE DIAGNOSES: 1. Bilateral buttock, hip, and back soft tissue necrosis secondary to foreign body reaction. 2. Cellulitis of bilateral buttocks. PROCEDURES PERFORMED: As follows: 1. Staged radical removal with debridement of foreign material from bilateral buttocks, hips, and back. 2. Elevation and delay of right inferiorly based gluteal fasciocutaneous flap. 3. Elevation and delay of left inferiorly based gluteal fasciocutaneous flap. 4. Elevation and delay of lumbar spine fasciocutaneous flap, superiorly based. 5. Radical resection of 500 sq. cm of right buttock necrotic soft tissue mass. 6. Radical resection of 180 sq. cm of right back necrotic soft tissue mass. 7. Radical resection of 720 sq. cm of necrotic left buttock soft tissue mass. 8. Radical dissection of 180 sq. cm of the left back necrotic soft tissue mass. 9. Debridement of bilateral gluteus jose necrotic muscles. 10. Pulsed jet lavage irrigation to bilateral buttocks. 11. Wound VAC placement of bilateral buttocks. INDICATION FOR PROCEDURE: This is a 31-year-old female who I had previously dictated an emergency consultation on. The patient was admitted to the hospital yesterday complaining of significant and severe retractable incapacitating bilateral buttock and back pain as well as physical exam findings consistent with an early cellulitis. The patient was evaluated and cleared by Dr. Welsh of the medical team and treated with IV antibiotics for her low-grade cellulitis. The patient was worked up with blood work to rule out JO-ANN syndrome, which has been pending, and she was optimized for this operation. MRI of the lumbar spine and pelvis showed significant infiltration of the subcutaneous tissues of the lumbar spine up to L2 as well as bilateral buttocks and anterior hips including significant infiltration of bilateral gluteus jose muscles, worse on the left side than the right side. This was the inciting cause of the patient's recurrent infections of cellulitis as well as the likely cause of the acute paresthesias and numbness of the legs, which she presented to the emergency room with secondary to pressure on the paraspinal muscles as well as the sciatic nerve. Preoperatively, it was explained to the patient the following, that she was about to undergo a staged partial radical removal of foreign material that was injected into her buttocks and hips, which likely migrated to her back and other parts of the body. There is no guarantee she would get better after this operation, and the possibility of her getting worse and the silicone may migrate in the future is possible. It was explained to the patient that we will be unable to take all of it out since that would be impossible to do, and some of the material may have migrated to her back and other parts of the body and may continue to do so in the future. We also explained to the patient that this has a potential for being cosmetically disfiguring and there could be a very poor cosmetic outcome, and there could be multiple operations over many years. The benefits of the proposed operation would be debulk and remove as much of the foreign body burden as possible which will take the pressure off the nerves of the spine and the legs, and this will also allow her immune system to reset, so she is not as prone to opportunistic infections in the future, and it may prevent further migration of the material to other parts of the body. In the past day, she has been treated with IV antibiotics for low-grade cellulitis and worked up for JO-ANN syndrome. She has been under pain control for her incapacitating buttock and back pain. I explained to the patient in the preop holding area that this is going to be a staged procedure and the goal would be two operations, the first one today where I would raise and delay fasciocutaneous flaps in the back and bilateral buttocks so we could see the viability of the skin flaps since there was going to be an incredible amount of debulking that was going to occur. Since such a large amount of debulking was going to occur, these flaps may become necrotic at the distal edges, that is my reasoning in elevating and delaying her flaps and treating her with a wound VAC in the interim, with the benefit of re-evaluating flaps to see if they needed to be debrided and the wound VAC would also suck out the bacteria and any foreign material. We explained to the patient that it is unknown how much of the foreign material we would take out. We told her we would take out whatever is visible and palpable in a safe manner. Again, it was reiterated that this could be cosmetically disfiguring. She may have poor scarring and her wound may break down. She may need multiple reconstructive surgeries over the next many years and her buttocks may come out significantly deformed. We told her conversely if she does nothing, she is at high risk of having her skin and eventually her whole buttocks necrosed and she would eventually require much more radical surgery and could even . The risks and benefits of the proposed operation including but not limited to bleeding, hematoma, seroma, infection, DVT, PE, FL, , necrosis of the skin flaps, open wounds, delayed healing, hypertrophic scarring, keloid scarring, skin necrosis, damage to sensory and motor nerves, difficulty in ambulating, chronic pain, and embolization of the foreign material to other parts of the body were discussed with the patient, and all questions were answered. DESCRIPTION OF PROCEDURE: The patient was taken to the operating room, and perioperative antibiotics were confirmed and SCDs were placed in bilateral lower extremities. In the preop holding area, I marked a low-transverse incision above her gluteal cleft. I correlated the MRI findings with the clinical exam, which showed fluctuant mass-like material in her back and tender nodules on bilateral buttocks and anterior hips. In the operating room, after SCDs were placed prior to the induction of anesthesia, she was placed in a prone position after appropriate positioning and padding of her body and extremities. The buttocks and back were prepped and draped in the usual clean and sterile manner. The anus was protected with a blue towel and Ioban dressing. The markings were reinforced and made symmetric. This was a very limited incision, which we explained to the patient it makes it a very challenging operation since the foreign material was evident up to L2 over lumbar spine and all the way down to the inferior gluteal crease as well as to anterior lateral hips and it migrated to her inguinal lymph nodes mostly to the left side. We told her we would not be addressing the lymph nodes in this operation, and we will try to get as far anterior and inferior as possible. Using a #10 scalpel, we dissected down through the skin and used electrocautery and dissected all the way down to the deep muscle fascia, the gluteus jose muscle, and the paraspinal muscles. We then elevated 3 fasciocutaneous flaps. We elevated a superiorly based lumbar fasciocutaneous flap about 12 cm superiorly and correlating to the fluctuant, tender nodules and masses on her physical exam as well as an MRI. We then elevated left and right inferiorly based gluteal fasciocutaneous flaps. We went down as far as we could with the instruments that we had and we were able to dissect down about 20 cm. Then in a plane just deep to Israel's fascia, we dissected the skin flaps off of the necrotic soft tissue, and with a combination of sharp dissection and electrocautery, we were able to debulk a large amount of fat necrosis, silicone scar tissue, and silicone granulomas and liquid that we encountered. We were able to debulk this in bilateral buttocks and back as well. There was 720 sq cm of the left buttock necrotic soft tissue mass, 500 sq cm on the right buttock and hip necrotic soft tissue mass, 180 sq cm of the left back necrotic soft tissue mass, and 180 sq cm of the right back necrotic soft tissue mass that we were able to debride in this manner, and this was sent to the lab. After doing this, we noticed there was necrosis of bilateral gluteus jose muscles, worse on the left, and this was debrided sharply and with electrocautery. We then palomares picked through the muscle and the silicone granulomas which were popped and removed. The superficial silicone granulomas just below the dermis were also popped. We obtained hemostasis with electrocautery. We then irrigated with 2 liters of antibiotic irrigation. We confirmed hemostasis. At this point, we were quite pleased. Wound cultures were also sent from some purulent-type fluid from the right hip. We were quite pleased with the initial debulking. We could not go any further down inferiorly. After obtaining hemostasis, we placed the wound VAC sponges underneath the flaps and set at 225 mmHg. She was then flipped over, extubated and sent to the recovery room in stable condition. Findings were as above. SPECIMENS: Wound cultures from right hip x2, aerobic and anaerobic as well as left back necrotic soft tissue mass, right back necrotic soft tissue mass, left buttock necrotic soft tissue mass, and right buttock necrotic soft tissue mass. DRAINS: Were wound VAC to open buttock wounds. ESTIMATED BLOOD LOSS: 600 mL. The patient got 2 units of packed red blood cells. COMPLICATIONS: None. CONDITION: Stable. Brian Zapien M.D. DR: EVA JOB#: [id number] CC: NING
[2017-05-27] MEDS: Ampicillin/Sulbactam Sod 3 GM in NS 110 ML IVPB SCH ×3 (05:46→21:59)
[2017-05-27] MEDS: Heparin 5000 units/ml inj SUBQ SCH ×3 (05:47→22:01)
[2017-05-27] MEDS: LR 1000ml 1,000 ML IV SCH (05:47)
[2017-05-27] MEDS: PCA shift volume MISC SCH ×2 (07:00→19:03)
[2017-05-27] MEDS: Docusate 100mg cap ORAL SCH ×2 (08:37→21:59)
--- NOTE | 2017-05-27 08:48 | 48 Hour Post Anesthesia Eval ---
Post Anesthesia Evaluation Procedure: Bilateral excision of necrotic tissue lower back Date of Evaluation: May 27, 2017 Time of Evaluation: 08:46 Blood Pressure Systolic: 102 0: 60 Pulse Rate: 72 Respiratory Rate: 20 Temperature (Fahrenheit): 97.6 O2 Sat by Pulse Oximetry: 98 Airway: patent Nausea: No Vomiting: No Pain Intensity: 2 Hydration Status: adequate Cardiopulmonary Status: stable Mental Status/LOC: patient returned to baseline Follow-up Care/Observations: n/a Post-Anesthesia Complications: none Follow-up care needed: N/A EDNA JASON M.D. May 27, 2017 08:48
[2017-05-27 08:51] VITALS: BP 103/59
[2017-05-27 09:24] LABS: BASOPHILS % (AUTO) 0.7 % (0.0-2.0); EOSINOPHILS % (AUTO) 0.4 % (0.0-3.0); HEMATOCRIT 37.2 % (37.0-47.0); HEMOGLOBIN 12.7 G/DL (12.0-16.0); LYMPHOCYTES % (AUTO) 29.1 % (20.0-45.0); MEAN CORPUSCULAR VOLUME 89 FL (80-99); NEUTROPHILS % (AUTO) 60.8 % (45.0-75.0); PLATELET COUNT 186 K/UL (150-450); RED BLOOD COUNT 4.18 M/UL (4.20-5.40); RED CELL DISTRIBUTION WIDTH 13.3 % (11.6-14.8); WHITE BLOOD COUNT 10.4 K/UL (4.8-10.8)
[2017-05-27 09:42] LABS: ANION GAP 5 mmol/L (5-15); BLOOD UREA NITROGEN 8 mg/dL (7-18); CARBON DIOXIDE 28 MMOL/L (21-32); CHLORIDE 106 MMOL/L (98-107); CREATININE 0.8 MG/DL (0.55-1.30); POTASSIUM 3.6 MMOL/L (3.5-5.1); SODIUM 139 MMOL/L (136-145)
--- NOTE | 2017-05-27 12:14 | General Progress Note ---
Progress Note Progress Note Pt doing well and reports resolution of pre-op sxs including back/buttock pain/ burning/itching, lower leg and hands paresthesias, fatigue and SOB (+) OOB PE: AF, VSS H/H PE: VACs in place, functioning skin flaps viable (-) signs infection/collections A/P 1. d/c dailey, HLIVF 2. cont IV abx, DVT ppx, OOB TID 3. cont VACS 4. daily labs; f/u wound cx from left hip 5. to OR monday for further debridement and likely flap closure over drains Brian Zapien M.D. May 27, 2017 12:14
--- NOTE | 2017-05-27 12:16 | Pre-Procedure Note/Attestation ---
Pre-Procedure Note/Attestation Complete Prior to Procedure Planned Procedure: bilateral Procedure Narrative: staged debridement of b/l buttock and hip necrotic soft tissue and flap closure Indications for Procedure Pre-Operative Diagnosis: b/l buttock and back necrotic soft tissue, cellulitis Attestation I attest that I discussed the nature of the procedure; its benefits; risks and complications; and alternatives (and the risks and benefits of such alternatives ), prior to the procedure, with the patient (or the patient's legal contracts representative). I attest that, if there was a reasonable possibility of needing a blood transfusion, the patient (or the patient's legal contracts representative) was given the [place] [employer] standardized written summary, pursuant to the Joe [place] Blood Safety Act ([place] Health and Safety Code # 1645, as amended). I attest that I re-evaluated the patient just prior to the surgery and that there has been no change in the patient's H&P, except as documented below: Brian Zapien M.D. May 27, 2017 12:16
[2017-05-27] MEDS: PCA Education Pamphlet MISC SCH (13:15)
--- NOTE | 2017-05-27 14:12 | General Progress Note ---
Subjective Allergies: Coded Allergies: CLINDAMYCIN (Verified Allergy, Severe, Rash, 05/25/17) SULFAMETHOXAZOLE (Verified Allergy, Severe, Rash, 05/25/17) TRIMETHOPRIM (Verified Allergy, Severe, Rash, 05/25/17) Subjective all noted Objective Last 24 Hour Vital Signs Date Time Temp Pulse Resp B/P (MAP) Pulse Ox O2 Delivery O2 Flow Rate FiO2 05/27/17 12:00 19 05/27/17 09:00 19 05/27/17 08:51 98.1 83 20 103/59 97 05/27/17 08:48 72 20 98 05/27/17 05:48 19 05/27/17 04:00 17 05/27/17 01:48 16 05/27/17 00:00 97.9 62 21 97/59 98 Nasal Cannula 05/27/17 00:00 17 05/26/17 21:48 17 05/26/17 20:00 98.2 82 20 98/54 99 Nasal Cannula 05/26/17 19:30 17 05/26/17 19:00 16 05/26/17 18:39 16 05/26/17 18:25 98.6 84 15 111/71 100 Nasal Cannula 3.0 05/26/17 18:24 15 05/26/17 18:10 87 14 130/83 100 Nasal Cannula 3.0 05/26/17 18:09 13 05/26/17 17:55 95 12 127/79 100 Nasal Cannula 3.0 05/26/17 17:40 82 18 125/75 100 Nasal Cannula 3.0 05/26/17 17:31 72 20 99 05/26/17 17:27 98.3 05/26/17 17:27 98.3 05/26/17 17:25 83 16 122/69 100 Nasal Cannula 3.0 05/26/17 17:10 82 11 109/68 100 Nasal Cannula 3.0 05/26/17 16:57 83 15 126/67 100 Nasal Cannula 3.0 05/26/17 16:45 82 15 123/89 100 Simple Mask 6.0 05/26/17 16:38 82 12 105/71 100 Simple Mask 6.0 05/26/17 16:33 90 13 119/75 100 Simple Mask 6.0 05/26/17 16:28 98.3 95 13 106/67 100 Simple Mask 6.0 Intake and Output 2/9/18 2/10/18 19:00 07:00 Intake Total 2325 ml 1450 ml Output Total 350 ml 560 ml Balance 1975 ml 890 ml Intake Oral 340 ml IV Total 2325 ml 1110 ml Output Urine Total 350 ml 300 ml Drainage Total 260 ml # Voids 2 Laboratory Tests 05/27/17 07:00: White Blood Count 10.4, Red Blood Count 4.18L, Hemoglobin 12.7, Hematocrit 37.2 , Mean Corpuscular Volume 89, Mean Corpuscular Hemoglobin 30.4, Mean Corpuscular Hemoglobin Concent 34.1, Red Cell Distribution Width 13.3, Platelet Count 186, Mean Platelet Volume 8.5, Neutrophils (%) (Auto) 60.8, Lymphocytes (% ) (Auto) 29.1, Monocytes (%) (Auto) 9.0, Eosinophils (%) (Auto) 0.4, Basophils ( %) (Auto) 0.7, Sodium Level 139, Potassium Level 3.6, Chloride Level 106, Carbon Dioxide Level 28, Anion Gap 5, Blood Urea Nitrogen 8, Creatinine 0.8, Estimat Glomerular Filtration Rate > 60, Glucose Level 80, Calcium Level 8.0L Height (Feet): 5 Height (Inches): 3.00 Weight (Pounds): 160 SARAH ROMERO May 27, 2017 14:12
--- NOTE | 2017-05-27 14:44 | General Progress Note ---
Assessment/Plan Problem List: (1) Abscess ICD Codes: L02.91 - Cutaneous abscess, unspecified SNOMED: 496094843 (2) Cellulitis ICD Codes: L03.90 - Cellulitis, unspecified SNOMED: 020558309 (3) Asthma ICD Codes: J45.909 - Unspecified asthma, uncomplicated SNOMED: 628522325 Assessment/Plan IV Abxs pain meds IVF Subjective Allergies: Coded Allergies: CLINDAMYCIN (Verified Allergy, Severe, Rash, 05/25/17) SULFAMETHOXAZOLE (Verified Allergy, Severe, Rash, 05/25/17) TRIMETHOPRIM (Verified Allergy, Severe, Rash, 05/25/17) Subjective feels ok Objective Last 24 Hour Vital Signs Date Time Temp Pulse Resp B/P (MAP) Pulse Ox O2 Delivery O2 Flow Rate FiO2 05/27/17 12:00 19 05/27/17 09:00 19 05/27/17 08:51 98.1 83 20 103/59 97 05/27/17 08:48 72 20 98 05/27/17 05:48 19 05/27/17 04:00 17 05/27/17 01:48 16 05/27/17 00:00 97.9 62 21 97/59 98 Nasal Cannula 05/27/17 00:00 17 05/26/17 21:48 17 05/26/17 20:00 98.2 82 20 98/54 99 Nasal Cannula 05/26/17 19:30 17 05/26/17 19:00 16 05/26/17 18:39 16 05/26/17 18:25 98.6 84 15 111/71 100 Nasal Cannula 3.0 05/26/17 18:24 15 05/26/17 18:10 87 14 130/83 100 Nasal Cannula 3.0 05/26/17 18:09 13 05/26/17 17:55 95 12 127/79 100 Nasal Cannula 3.0 05/26/17 17:40 82 18 125/75 100 Nasal Cannula 3.0 05/26/17 17:31 72 20 99 05/26/17 17:27 98.3 05/26/17 17:27 98.3 05/26/17 17:25 83 16 122/69 100 Nasal Cannula 3.0 05/26/17 17:10 82 11 109/68 100 Nasal Cannula 3.0 05/26/17 16:57 83 15 126/67 100 Nasal Cannula 3.0 05/26/17 16:45 82 15 123/89 100 Simple Mask 6.0 05/26/17 16:38 82 12 105/71 100 Simple Mask 6.0 05/26/17 16:33 90 13 119/75 100 Simple Mask 6.0 05/26/17 16:28 98.3 95 13 106/67 100 Simple Mask 6.0 Intake and Output 05/26/17 05/27/17 19:00 07:00 Intake Total 2325 ml 1450 ml Output Total 350 ml 560 ml Balance 1975 ml 890 ml Intake Oral 340 ml IV Total 2325 ml 1110 ml Output Urine Total 350 ml 300 ml Drainage Total 260 ml # Voids 2 Laboratory Tests 05/27/17 07:00: White Blood Count 10.4, Red Blood Count 4.18L, Hemoglobin 12.7, Hematocrit 37.2 , Mean Corpuscular Volume 89, Mean Corpuscular Hemoglobin 30.4, Mean Corpuscular Hemoglobin Concent 34.1, Red Cell Distribution Width 13.3, Platelet Count 186, Mean Platelet Volume 8.5, Neutrophils (%) (Auto) 60.8, Lymphocytes (% ) (Auto) 29.1, Monocytes (%) (Auto) 9.0, Eosinophils (%) (Auto) 0.4, Basophils ( %) (Auto) 0.7, Sodium Level 139, Potassium Level 3.6, Chloride Level 106, Carbon Dioxide Level 28, Anion Gap 5, Blood Urea Nitrogen 8, Creatinine 0.8, Estimat Glomerular Filtration Rate > 60, Glucose Level 80, Calcium Level 8.0L Height (Feet): 5 Height (Inches): 3.00 Weight (Pounds): 160 Cardiovascular: normal rate Respiratory/Chest: lungs clear SARAH ROMERO May 27, 2017 14:44
[2017-05-27] MEDS ORDERED: Tubing IV Secondary IV ONE (14:53)
[2017-05-27] MEDS: PCA HYDROmorphone 1mg/ml 30 ML IV PRN (15:09)
[2017-05-27] MEDS: Albuterol ud Inhalation HHN PRN (16:08)
[2017-05-27 16:09] VITALS: BP 99/71
[2017-05-27] MEDS ORDERED: NS 500ML ONE (17:23)
[2017-05-28] MEDS: Ampicillin/Sulbactam Sod 3 GM in NS 110 ML IVPB SCH ×3 (05:35→22:36)
[2017-05-28] MEDS: Heparin 5000 units/ml inj SUBQ SCH ×3 (05:38→22:00)
[2017-05-28] MEDS: Albuterol ud Inhalation HHN PRN (06:54)
[2017-05-28] MEDS: PCA shift volume MISC SCH (07:05)
[2017-05-28 08:39] LABS: BASOPHILS % (AUTO) 0.9 % (0.0-2.0); EOSINOPHILS % (AUTO) 0.7 % (0.0-3.0); HEMOGLOBIN 11.7 G/DL (12.0-16.0); LYMPHOCYTES % (AUTO) 27.6 % (20.0-45.0); MEAN CORPUSCULAR VOLUME 88 FL (80-99); MONOCYTES % (AUTO) 7.4 % (1.0-10.0); NEUTROPHILS % (AUTO) 63.4 % (45.0-75.0); PLATELET COUNT 173 K/UL (150-450); RED BLOOD COUNT 3.73 M/UL (4.20-5.40); RED CELL DISTRIBUTION WIDTH 13.6 % (11.6-14.8); WHITE BLOOD COUNT 10.6 K/UL (4.8-10.8)
[2017-05-28 08:46] VITALS: BP 109/56
[2017-05-28 09:09] LABS: ANION GAP 7 mmol/L (5-15); BLOOD UREA NITROGEN 6 mg/dL (7-18); CALCIUM 8.2 MG/DL (8.5-10.1); CARBON DIOXIDE 27 MMOL/L (21-32); CHLORIDE 106 MMOL/L (98-107); CREATININE 0.7 MG/DL (0.55-1.30); POTASSIUM 3.2 MMOL/L (3.5-5.1); SODIUM 140 MMOL/L (136-145)
[2017-05-28] MEDS: Docusate 100mg cap ORAL SCH ×2 (09:21→22:29)
[2017-05-28 12:00] VITALS: BP 105/69
--- NOTE | 2017-05-28 12:12 | General Progress Note ---
Assessment/Plan Problem List: (1) Abscess ICD Codes: L02.91 - Cutaneous abscess, unspecified SNOMED: 853304236 (2) Cellulitis ICD Codes: L03.90 - Cellulitis, unspecified SNOMED: 217890235 (3) Asthma ICD Codes: J45.909 - Unspecified asthma, uncomplicated SNOMED: 132433065 (4) Hypokalemia ICD Codes: E87.6 - Hypokalemia SNOMED: 15205205 Assessment/Plan Replete K IV Abxs pain meds IVF discussed with RN Subjective Allergies: Coded Allergies: CLINDAMYCIN (Verified Allergy, Severe, Rash, 05/25/17) SULFAMETHOXAZOLE (Verified Allergy, Severe, Rash, 05/25/17) TRIMETHOPRIM (Verified Allergy, Severe, Rash, 05/25/17) Subjective C/O back pain after sitting in a chair Objective Last 24 Hour Vital Signs Date Time Temp Pulse Resp B/P (MAP) Pulse Ox O2 Delivery O2 Flow Rate FiO2 05/28/17 08:46 98.1 109 19 109/56 98 05/28/17 07:30 16 05/28/17 06:54 90 18 97 Room Air 21 05/28/17 06:52 90 18 Room Air 05/28/17 04:11 16 05/28/17 02:30 98.3 05/28/17 00:06 17 05/27/17 20:04 18 05/27/17 16:15 90 20 99 Room Air 21 05/27/17 16:12 87 20 Room Air 21 05/27/17 16:10 88 20 98 Room Air 21 05/27/17 16:09 98.3 77 22 99/71 99 Room Air 05/27/17 16:00 20 Intake and Output 05/27/17 05/28/17 19:00 07:00 Intake Total 630 ml 220 ml Output Total 625 ml Balance 5 ml 220 ml Intake Oral 120 ml IV Total 510 ml 220 ml Output Urine Total 200 ml Drainage Total 425 ml # Voids 2 Laboratory Tests 05/28/17 06:47: White Blood Count 10.6, Red Blood Count 3.73L, Hemoglobin 11.7L, Hematocrit 33.0L, Mean Corpuscular Volume 88, Mean Corpuscular Hemoglobin 31.3H, Mean Corpuscular Hemoglobin Concent 35.3, Red Cell Distribution Width 13.6, Platelet Count 173, Mean Platelet Volume 8.3, Neutrophils (%) (Auto) 63.4, Lymphocytes (% ) (Auto) 27.6, Monocytes (%) (Auto) 7.4, Eosinophils (%) (Auto) 0.7, Basophils ( %) (Auto) 0.9, Sodium Level 140, Potassium Level 3.2L, Chloride Level 106, Carbon Dioxide Level 27, Anion Gap 7, Blood Urea Nitrogen 6L, Creatinine 0.7, Estimat Glomerular Filtration Rate > 60, Glucose Level 86, Calcium Level 8.2L Height (Feet): 5 Height (Inches): 3.00 Weight (Pounds): 160 Cardiovascular: normal rate Respiratory/Chest: lungs clear Edema: no edema noted Generalized SARAH ROMERO May 28, 2017 12:12
[2017-05-28] MEDS ORDERED: PCA HYDROmorphone 1mg/ml 30 ML IV PRN (13:15)
[2017-05-28 16:00] VITALS: BP 110/70
[2017-05-28] MEDS ORDERED: Rate Change PCA 1 Each MISC PRN (19:45)
[2017-05-28 20:00] VITALS: BP 104/59
--- NOTE | 2017-05-28 21:33 | General Progress Note ---
Progress Note Progress Note pt doing well (+) OOB AF, VSS VAC in place flaps viable (-) signs infection/collections A/P1. NPO, IVF p MN 2. to OR in am for staged debridement of b/l buttock/hip necrotic soft tissue and flap closure over drains 3. cont abx, dvt ppx, oob, pain rx Brian Zapien M.D. May 28, 2017 21:33
[2017-05-28] MEDS: LR 1000ml 1,000 ML IV SCH (22:37)
[2017-05-28] MEDS: PCA HYDROmorphone 30mg/30ml Syr IV PRN (23:42)
[2017-05-29] VITALS (14 sets, daily range): BP systolic 105–126; BP diastolic 64–88
[2017-05-29] MEDS: PCA HYDROmorphone 30mg/30ml Syr IV PRN (01:19)
[2017-05-29] MEDS: Albuterol ud Inhalation HHN PRN ×2 (04:15→19:52)
[2017-05-29] MEDS: Heparin 5000 units/ml inj SUBQ SCH ×2 (06:00→21:41)
[2017-05-29] MEDS: Ampicillin/Sulbactam Sod 3 GM in NS 110 ML IVPB SCH ×3 (06:33→21:39)
[2017-05-29] MEDS ORDERED: PCA shift volume MISC SCH (07:00)
[2017-05-29] MEDS: Docusate 100mg cap ORAL SCH ×2 (08:15→21:39)
[2017-05-29 08:25] LABS: BASOPHILS % (AUTO) 0.7 % (0.0-2.0); EOSINOPHILS % (AUTO) 0.7 % (0.0-3.0); HEMATOCRIT 32.9 % (37.0-47.0); HEMOGLOBIN 11.2 G/DL (12.0-16.0); LYMPHOCYTES % (AUTO) 28.7 % (20.0-45.0); MEAN CORPUSCULAR VOLUME 90 FL (80-99); MONOCYTES % (AUTO) 10.9 % (1.0-10.0); PLATELET COUNT 162 K/UL (150-450); RED BLOOD COUNT 3.68 M/UL (4.20-5.40); RED CELL DISTRIBUTION WIDTH 13.3 % (11.6-14.8); WHITE BLOOD COUNT 8.6 K/UL (4.8-10.8)
[2017-05-29] MEDS: LR 1000ml 1,000 ML IV SCH ×2 (08:30→15:30)
[2017-05-29 08:54] LABS: ANION GAP 8 mmol/L (5-15); BLOOD UREA NITROGEN 4 mg/dL (7-18); CALCIUM 8.2 MG/DL (8.5-10.1); CARBON DIOXIDE 28 MMOL/L (21-32); CHLORIDE 107 MMOL/L (98-107); CREATININE 0.8 MG/DL (0.55-1.30); POTASSIUM 3.5 MMOL/L (3.5-5.1); SODIUM 143 MMOL/L (136-145)
[2017-05-29] MEDS ORDERED: NeoSporin Gu Irrig 1ml Amp IRRIG ONE (09:00)
[2017-05-29] MEDS ORDERED: Bacitracin 50000 Units Vial ONE (09:00)
[2017-05-29] MEDS ORDERED: Midazolam 2mg/2ml Inj ONE (09:30)
[2017-05-29] MEDS ORDERED: NS Irrig 1000ml ONE ×2 (09:30)
[2017-05-29] MEDS ORDERED: fentaNYL 100 mcg/2 mL IV ONE (09:30)
[2017-05-29] MEDS ORDERED: Sterile Water Irrig 1000ml IRRIG ONE (09:30)
[2017-05-29] MEDS ORDERED: Propofol 200mg/20ml IV ONE (09:30)
[2017-05-29] MEDS ORDERED: LR 1000ml ONE (09:30)
[2017-05-29] MEDS ORDERED: Zemuron 50mg/5ml Inj IV ONE (09:30)
[2017-05-29] MEDS ORDERED: LR 1000ml 1,000 ML IVLG SCH (10:29)
[2017-05-29] MEDS ORDERED: DiphenhydrAMINE 50mg/ml Inj IVP PRN (10:30)
[2017-05-29] MEDS ORDERED: Hydromorphone 0.5mg/0.5ml inj IVP PRN (10:30)
[2017-05-29] MEDS ORDERED: Meperidine 50mg/ml Inj(FOR RIGORS ONLY) IVP ONE (10:30)
[2017-05-29] MEDS ORDERED: LORazepam Inj 2mg/ml 1ml IV PRN (10:30)
--- NOTE | 2017-05-29 10:36 | Anethesia Preoperative Eval ---
Anesthesia Pre-op PMH/ROS General Date of Evaluation: May 29, 2017 Time of Evaluation: 09:34 Anesthesiologist: Adin ASA Score: ASA 2 Mallampati Score Class I : Soft palate, uvula, fauces, pillars visible Class II: Soft palate, uvula, fauces visible Class III: Soft palate, base of uvula visible Class IV: Only hard plate visible Mallampati Classification: Class II Surgeon: Curry Diagnosis: Abscess Buttocks Surgical Procedure: I&D with closure Allergies: Coded Allergies: CLINDAMYCIN (Verified Allergy, Severe, Rash, 05/25/17) SULFAMETHOXAZOLE (Verified Allergy, Severe, Rash, 05/25/17) TRIMETHOPRIM (Verified Allergy, Severe, Rash, 05/25/17) Medications: see eMAR Past Medical History Cardiovascular: Denies: HTN, CAD, NC, valve dz, arrhythmia, other Pulmonary: Reports: asthma, Denies: COPD, JP, other Gastrointestinal/Genitourinary: Denies: GERD, CRI, ESRD, other Neurologic/Psychiatric: Denies: dementia, CVA, depression/anxiety, TIA, other Endocrine: Denies: DM, hypothyroidism, steroids, other HEENT: Denies: cataract (L), cataract (R), glaucoma, INAJA (L), INAJA (R), other Hematology/Immune: Denies: anemia, DVT, bleeding disorder, other Musculoskeletal/Integumentary: Denies: OA, RA, DJD, DDD, edema, other PMH Narrative: Asthma PSxH Narrative: C/S, first stage I&D buttocks absess Anesthesia Pre-op Phys. Exam Physician Exam Last Vital Signs Date Time Temp Pulse Resp B/P (MAP) Pulse Ox O2 Delivery O2 Flow Rate FiO2 05/29/17 08:00 19 05/29/17 07:40 95 Room Air 05/29/17 04:26 99 21 05/29/17 00:00 98.1 105/64 05/26/17 18:25 3.0 Constitutional: NAD Neurologic: CN 2-12 intact Cardiovascular: RRR, no M/R/G Respiratory: CTA Gastrointestinal: S/NT/ND Airway Exam Mallampati Score: Class II MO: full ROM: full Teeth: intact, other - Braces upper and lower Anesthesia Pre-op A/P Labs Hematology Test 05/29/17 06:44 White Blood Count 8.6 K/UL (4.8-10.8) Red Blood Count 3.68 M/UL (4.20-5.40) L Hemoglobin 11.2 G/DL (12.0-16.0) L Hematocrit 32.9 % (37.0-47.0) L Mean Corpuscular Volume 90 FL (80-99) Mean Corpuscular Hemoglobin 30.4 PG (27.0-31.0) Mean Corpuscular Hemoglobin Concent 33.9 G/DL (32.0-36.0) Red Cell Distribution Width 13.3 % (11.6-14.8) Platelet Count 162 K/UL (150-450) Mean Platelet Volume 8.3 FL (6.5-10.1) Neutrophils (%) (Auto) 59.0 % (45.0-75.0) Lymphocytes (%) (Auto) 28.7 % (20.0-45.0) Monocytes (%) (Auto) 10.9 % (1.0-10.0) H Eosinophils (%) (Auto) 0.7 % (0.0-3.0) Basophils (%) (Auto) 0.7 % (0.0-2.0) Chemistry Test 05/29/17 06:44 Sodium Level 143 MMOL/L (136-145) Potassium Level 3.5 MMOL/L (3.5-5.1) Chloride Level 107 MMOL/L (98-107) Carbon Dioxide Level 28 MMOL/L (21-32) Anion Gap 8 mmol/L (5-15) Blood Urea Nitrogen 4 mg/dL (7-18) L Creatinine 0.8 MG/DL (0.55-1.30) Estimat Glomerular Filtration Rate > 60 mL/min (>60) Glucose Level 82 MG/DL (74-106) Calcium Level 8.2 MG/DL (8.5-10.1) L Magnesium Level 1.6 MG/DL (1.8-2.4) L Risk Assessment & Plan Assessment: 31 yo female with h/o asthma here for 2nd stage I&D buttocks abscess with closure Plan: GETA Status Change Before Surgery: No Pre-Antibiotics Drug: Ancef Given Within 1 Hr of Incision: Yes Time Given: 09:50 GERALDINE VANESSA M.D. May 29, 2017 10:36
--- NOTE | 2017-05-29 10:37 | Immediate Post-Op Evaluation ---
Immediate Post-Op Evalulation Immediate Post-Op Evalulation Procedure: Bilateral excision of necrotic tissue lower back Date of Evaluation: May 29, 2017 Time of Evaluation: 13:15 IV Fluids: 1200 Estimated Blood Loss: 200 Blood Pressure Systolic: 125 Blood Pressure Diastolic: 98 Pulse Rate: 68 Respiratory Rate: 14 O2 Sat by Pulse Oximetry: 100 Temperature (Fahrenheit): 97.5 Pain Score (1-10): 2 Nausea: No Vomiting: No Complications No complication Patient Status: awake, patent, none Hydration Status: adequate Drug: Ancef Given Within 1 Hr of Incision: Yes Time Given: 09:50 GERALDINE VANESSA M.D. May 29, 2017 10:37
[2017-05-29] MEDS ORDERED: Rate Change PCA 1 Each MISC PRN (11:45)
[2017-05-29] MEDS ORDERED: LORazepam 1mg tab ORAL PRN (11:45)
--- NOTE | 2017-05-29 12:47 | Operative Note - PDOC ---
Operative Note Operative Note Pre-op Diagnosis: b/l buttock and back necrotic soft tissue, cellulitis Procedure: staged debridement of b/l buttock and hip necrotic soft tissue, advancement flap closure Post-op Diagnosis: same Post-op Diagnosis: same as pre-op Surgeon: jenifer Blind Slat Stapling Machine Operator: manish Anesthesiologist: ramin Anesthesia: general Specimen: yes - b/l buttocks and back necrotic soft tissues Complications: none Condition: stable Estimated Blood Loss: volume - 250 Drains: LOULOU Implant(s) used?: No Indications for Procedure necrotic hip and buttock soft tissue Description of Procedure see dictation Brian Zapien M.D. May 29, 2017 12:47
[2017-05-29] MEDS ORDERED: PCA Education Pamphlet MISC ONE (13:00)
[2017-05-29] MEDS ORDERED: Albuterol ud Inhalation HHN SCH (13:30)
[2017-05-29] MEDS: PCA HYDROmorphone 1mg/ml 30 ML IV PRN (14:00)
[2017-05-29] MEDS ORDERED: Metoprolol 5mg/5ml Inj IVP ONE (14:45)
[2017-05-29] MEDS: PCA shift volume MISC SCH (19:11)
--- NOTE | 2017-05-29 23:38 | Internal Med Progress Note ---
Subjective Physician Name Tremaine Choudhury Attending Physician Tremaine Choudhury M.D. Current Medications Medications (Trade) Dose Ordered Sig/Bernie Route PRN Reason Start Time Stop Time Status Last Admin Dose Admin Acetaminophen (Tylenol) 650 mg Q4H PRN ORAL Mild Pain (Pain Scale 1-3) 05/25/17 16:00 06/24/17 15:59 Albuterol Sulfate (Proventil) 2.5 mg QIDPRN PRN HHN Shortness of Breath 05/25/17 16:00 05/30/17 15:59 05/29/17 19:52 Ampicillin Sodium/ Sulbactam Sodium 3 gm/Sodium Chloride 110 ml @ 220 mls/hr Q8H IVPB 05/26/17 22:00 06/02/17 21:59 05/29/17 21:39 Dextrose (Dextrose 50%) STAT PRN IV Hypoglycemia 05/25/17 16:00 06/24/17 15:59 Diphenhydramine HCl (Benadryl) 25 mg Q6H PRN IVP Itching/Pruritis 05/29/17 11:45 05/31/17 11:44 Docusate Sodium (Colace) 100 mg EVERY 12 HOURS ORAL 05/25/17 21:00 06/24/17 20:59 05/29/17 21:39 Heparin Sodium (Porcine) (Heparin 5000 units/ml) 5,000 units EVERY 8 HOURS SUBQ 05/29/17 22:00 06/28/17 21:59 05/29/17 21:41 Hydromorphone HCl 30 ml @ 0 mls/hr Q24H PRN IV For Pain 05/29/17 11:45 05/31/17 11:44 05/29/17 14:00 Hydromorphone HCl (Dilaudid) 2 mg Q3H PRN SUBQ Severe Pain (Pain Scale 7-10) 05/28/17 19:45 05/30/17 19:44 Hydromorphone HCl (Dilaudid) 2 mg Q4H PRN IVP Moderate Pain (Pain Scale 4-6) 05/28/17 19:45 05/30/17 19:44 05/29/17 19:03 Lactated Ringer's 1,000 ml @ 100 mls/hr Q10H IV 05/29/17 18:01 06/28/17 18:00 05/29/17 15:30 Lorazepam (Ativan) 1 mg Q4H PRN ORAL Muscle Spasm 05/29/17 11:45 05/31/17 11:44 Miscellaneous Medication (DIGITAL ACCOUNT MANAGER Rate Change) 1 ea DAILY PRN MISC rate change 05/29/17 11:45 05/31/17 11:44 Miscellaneous Medication (DIGITAL ACCOUNT MANAGER shift volume) 1 ea Q12HR@0700,1900 MISC 05/29/17 19:00 05/31/17 18:59 05/29/17 19:11 Naloxone HCl (Narcan) 0.1 mg PRN IV . 05/29/17 11:45 05/31/17 11:44 Ondansetron HCl (Zofran) 4 mg Q6H PRN IVP Nausea & Vomiting 05/29/17 11:45 05/31/17 11:44 Allergies: Coded Allergies: CLINDAMYCIN (Verified Allergy, Severe, Rash, 05/25/17) SULFAMETHOXAZOLE (Verified Allergy, Severe, Rash, 05/25/17) TRIMETHOPRIM (Verified Allergy, Severe, Rash, 05/25/17) All Systems: reviewed and negative except above - buttocks pain Objective Last Vital Signs Date Time Temp Pulse Resp B/P (MAP) Pulse Ox O2 Delivery O2 Flow Rate FiO2 05/29/17 20:24 98.1 122 20 112/65 99 Room Air 05/29/17 19:52 21 05/29/17 14:43 3.0 Laboratory Tests Test 05/29/17 06:44 White Blood Count 8.6 K/UL (4.8-10.8) Red Blood Count 3.68 M/UL (4.20-5.40) L Hemoglobin 11.2 G/DL (12.0-16.0) L Hematocrit 32.9 % (37.0-47.0) L Mean Corpuscular Volume 90 FL (80-99) Mean Corpuscular Hemoglobin 30.4 PG (27.0-31.0) Mean Corpuscular Hemoglobin Concent 33.9 G/DL (32.0-36.0) Red Cell Distribution Width 13.3 % (11.6-14.8) Platelet Count 162 K/UL (150-450) Mean Platelet Volume 8.3 FL (6.5-10.1) Neutrophils (%) (Auto) 59.0 % (45.0-75.0) Lymphocytes (%) (Auto) 28.7 % (20.0-45.0) Monocytes (%) (Auto) 10.9 % (1.0-10.0) H Eosinophils (%) (Auto) 0.7 % (0.0-3.0) Basophils (%) (Auto) 0.7 % (0.0-2.0) Sodium Level 143 MMOL/L (136-145) Potassium Level 3.5 MMOL/L (3.5-5.1) Chloride Level 107 MMOL/L (98-107) Carbon Dioxide Level 28 MMOL/L (21-32) Anion Gap 8 mmol/L (5-15) Blood Urea Nitrogen 4 mg/dL (7-18) L Creatinine 0.8 MG/DL (0.55-1.30) Estimat Glomerular Filtration Rate > 60 mL/min (>60) Glucose Level 82 MG/DL (74-106) Calcium Level 8.2 MG/DL (8.5-10.1) L Magnesium Level 1.6 MG/DL (1.8-2.4) L Intake and Output 05/28/17 05/29/17 19:00 07:00 Intake Total 590 ml 480 ml Output Total 250 ml Balance 590 ml 230 ml Intake Oral 480 ml 480 ml IV Total 110 ml Drainage Total 250 ml # Voids 2 Objective General Appearance: no apparent distress, alert EENT: PERRL/EOMI, normal ENT inspection Neck: normal alignment, supple Cardiovascular: normal rate, regular rhythm Respiratory/Chest: lungs clear, normal breath sounds Abdomen: non tender, soft Extremities: normal range of motion, non-tender Neurologic: alert, oriented x 3 Skin: wound vac over buttocks. 2 LOULOU drains over Left and 3 LOULOU drains over Right Assessment/Plan Assessment/Plan ASSESSMENT: 1. Gluteal soft tissue necrosis with cellulitis s/p staged debridement of b/l buttock and hip necrotic soft tissue, advancement flap closure 2. History of asthma. PLAN: 1. Medsurg 2. Plastic surgery recs appreciated 3. abx - Unasyn 4. wound care 5. wound vac 6. IV hydration - LR @ 125 cc/hr 7. Albuterol as needed. 8. DVT prophylaxis with SCDs. d/c planning for Mon - on Cipro 500mg PO BID x 2 wks, Percocet #30 w/ f/u with Plastics (Dr. Caldera) in 1 wk TREMAINE CHOUDHURY M.D. May 29, 2017 23:38
[2017-05-30 00:01] VITALS: BP 108/59
[2017-05-30] MEDS: LR 1000ml 1,000 ML IV SCH (03:43)
[2017-05-30 04:00] VITALS: BP 111/64
[2017-05-30] MEDS: Ampicillin/Sulbactam Sod 3 GM in NS 110 ML IVPB SCH ×3 (05:33→21:42)
[2017-05-30] MEDS: Heparin 5000 units/ml inj SUBQ SCH ×3 (05:33→21:29)
[2017-05-30] MEDS: Albuterol ud Inhalation HHN PRN ×2 (07:14→11:52)
[2017-05-30 07:24] LABS: EOSINOPHILS % (AUTO) 1.3 % (0.0-3.0); HEMOGLOBIN 8.8 G/DL (12.0-16.0); LYMPHOCYTES % (AUTO) 28.4 % (20.0-45.0); MEAN CORPUSCULAR VOLUME 90 FL (80-99); MONOCYTES % (AUTO) 10.1 % (1.0-10.0); NEUTROPHILS % (AUTO) 59.2 % (45.0-75.0); PLATELET COUNT 171 K/UL (150-450); RED BLOOD COUNT 2.89 M/UL (4.20-5.40); RED CELL DISTRIBUTION WIDTH 13.8 % (11.6-14.8); WHITE BLOOD COUNT 9.2 K/UL (4.8-10.8)
[2017-05-30] MEDS: PCA shift volume MISC SCH ×2 (07:27→19:17)
[2017-05-30 07:35] LABS: ANION GAP 4 mmol/L (5-15); BLOOD UREA NITROGEN 7 mg/dL (7-18); CALCIUM 7.6 MG/DL (8.5-10.1); CARBON DIOXIDE 28 MMOL/L (21-32); CHLORIDE 108 MMOL/L (98-107); CREATININE 0.7 MG/DL (0.55-1.30); POTASSIUM 3.8 MMOL/L (3.5-5.1); SODIUM 140 MMOL/L (136-145)
[2017-05-30 08:05] VITALS: BP 116/68
[2017-05-30] MEDS: Docusate 100mg cap ORAL SCH ×2 (09:09→20:31)
[2017-05-30] MEDS ORDERED: Tubing IV Secondary IV ONE (11:27)
[2017-05-30 12:11] VITALS: BP 107/61
[2017-05-30] MEDS ORDERED: Guaifenesin/DM 10ml syrup ORAL PRN (13:00)
--- NOTE | 2017-05-30 13:12 | Internal Med Progress Note ---
Subjective Physician Name Tremaine Choudhury Attending Physician Tremaine Choudhury M.D. Current Medications Medications (Trade) Dose Ordered Sig/Bernie Route PRN Reason Start Time Stop Time Status Last Admin Dose Admin Acetaminophen (Tylenol) 650 mg Q4H PRN ORAL Mild Pain (Pain Scale 1-3) 05/25/17 16:00 06/24/17 15:59 Albuterol Sulfate (Proventil) 2.5 mg QIDPRN PRN HHN Shortness of Breath 05/25/17 16:00 05/30/17 15:59 05/30/17 11:52 Ampicillin Sodium/ Sulbactam Sodium 3 gm/Sodium Chloride 110 ml @ 220 mls/hr Q8H IVPB 05/26/17 22:00 06/02/17 21:59 05/30/17 05:33 Dextrose (Dextrose 50%) STAT PRN IV Hypoglycemia 05/25/17 16:00 06/24/17 15:59 Diphenhydramine HCl (Benadryl) 25 mg Q6H PRN IVP Itching/Pruritis 05/29/17 11:45 05/31/17 11:44 Docusate Sodium (Colace) 100 mg EVERY 12 HOURS ORAL 05/25/17 21:00 06/24/17 20:59 05/30/17 09:09 Guaifenesin/ Dextromethorphan (Robitussin DM Syrup) 5 ml Q4H PRN ORAL For Cough 05/30/17 13:00 06/29/17 12:59 Heparin Sodium (Porcine) (Heparin 5000 units/ml) 5,000 units EVERY 8 HOURS SUBQ 05/29/17 22:00 06/28/17 21:59 05/30/17 05:33 Hydromorphone HCl 30 ml @ 0 mls/hr Q24H PRN IV For Pain 05/29/17 11:45 05/31/17 11:44 05/29/17 14:00 Hydromorphone HCl (Dilaudid) 2 mg Q3H PRN SUBQ Severe Pain (Pain Scale 7-10) 05/28/17 19:45 05/30/17 19:44 Hydromorphone HCl (Dilaudid) 2 mg Q4H PRN IVP Moderate Pain (Pain Scale 4-6) 05/28/17 19:45 05/30/17 19:44 05/30/17 03:44 Lorazepam (Ativan) 1 mg Q4H PRN ORAL Muscle Spasm 05/29/17 11:45 05/31/17 11:44 Miscellaneous Medication (MERCHANT MILLER Rate Change) 1 ea DAILY PRN MISC rate change 05/29/17 11:45 05/31/17 11:44 Miscellaneous Medication (MERCHANT MILLER shift volume) 1 ea Q12HR@0700,1900 MISC 05/29/17 19:00 05/31/17 18:59 05/30/17 07:27 Naloxone HCl (Narcan) 0.1 mg PRN IV . 05/29/17 11:45 05/31/17 11:44 Ondansetron HCl (Zofran) 4 mg Q6H PRN IVP Nausea & Vomiting 05/29/17 11:45 05/31/17 11:44 Allergies: Coded Allergies: CLINDAMYCIN (Verified Allergy, Severe, Rash, 05/25/17) SULFAMETHOXAZOLE (Verified Allergy, Severe, Rash, 05/25/17) TRIMETHOPRIM (Verified Allergy, Severe, Rash, 05/25/17) All Systems: reviewed and negative except above - cough, congestion Objective Last Vital Signs Date Time Temp Pulse Resp B/P (MAP) Pulse Ox O2 Delivery O2 Flow Rate FiO2 05/30/17 12:11 99.0 96 18 107/61 99 Nasal Cannula 2.0 05/30/17 11:52 21 Laboratory Tests Test 05/30/17 05:40 White Blood Count 9.2 K/UL (4.8-10.8) Red Blood Count 2.89 M/UL (4.20-5.40) L Hemoglobin 8.8 G/DL (12.0-16.0) L Hematocrit 26.0 % (37.0-47.0) L Mean Corpuscular Volume 90 FL (80-99) Mean Corpuscular Hemoglobin 30.5 PG (27.0-31.0) Mean Corpuscular Hemoglobin Concent 33.9 G/DL (32.0-36.0) Red Cell Distribution Width 13.8 % (11.6-14.8) Platelet Count 171 K/UL (150-450) Mean Platelet Volume 8.1 FL (6.5-10.1) Neutrophils (%) (Auto) 59.2 % (45.0-75.0) Lymphocytes (%) (Auto) 28.4 % (20.0-45.0) Monocytes (%) (Auto) 10.1 % (1.0-10.0) H Eosinophils (%) (Auto) 1.3 % (0.0-3.0) Basophils (%) (Auto) 1.0 % (0.0-2.0) Sodium Level 140 MMOL/L (136-145) Potassium Level 3.8 MMOL/L (3.5-5.1) Chloride Level 108 MMOL/L (98-107) H Carbon Dioxide Level 28 MMOL/L (21-32) Anion Gap 4 mmol/L (5-15) L Blood Urea Nitrogen 7 mg/dL (7-18) Creatinine 0.7 MG/DL (0.55-1.30) Estimat Glomerular Filtration Rate > 60 mL/min (>60) Glucose Level 84 MG/DL (74-106) Calcium Level 7.6 MG/DL (8.5-10.1) L Intake and Output 05/29/17 05/30/17 19:00 07:00 Intake Total 1230 ml Output Total 390 ml 195 ml Balance 840 ml -195 ml Intake Oral 180 ml IV Total 1050 ml Output Urine Total 150 ml Drainage Total 240 ml 195 ml # Voids 3 2 Objective General Appearance: no apparent distress, alert EENT: PERRL/EOMI, normal ENT inspection Neck: normal alignment, supple Cardiovascular: normal rate, regular rhythm Respiratory/Chest: lungs clear, normal breath sounds Abdomen: non tender, soft Extremities: normal range of motion, non-tender Neurologic: alert, oriented x 3 Skin: wound vac over buttocks. 2 LOULOU drains over Left and 3 LOULOU drains over Right Assessment/Plan Assessment/Plan ASSESSMENT: 1. Gluteal soft tissue necrosis with cellulitis s/p staged debridement of b/l buttock and hip necrotic soft tissue, advancement flap closure 2. asthma. PLAN: 1. Medsurg 2. Plastic surgery recs appreciated 3. abx - Unasyn 4. wound care 5. CXR from today shows no infiltrate 6. IV hydration - LR @ 125 cc/hr 7. Albuterol 6hr prn 8. DVT prophylaxis with SCDs. d/c planning for Wed - on Cipro 500mg PO BID x 2 wks, Percocet #30 w/ f/u with Plastics (Dr. Caldera) in 1 wk TREMAINE CHOUDHURY M.D. May 30, 2017 13:12
[2017-05-30] MEDS: PCA HYDROmorphone 1mg/ml 30 ML IV PRN (14:00)
--- NOTE | 2017-05-30 14:13 | Diagnostic Imaging Report ---
Indication: Dyspnea Comparison: 05/25/2017 A single view chest radiograph was obtained. Findings: Cardiomediastinal appearance is within normal limits for age. Pulmonary vascularity is appropriate. The diaphragmatic contour is smooth and costophrenic angles are sharp. No pleural effusions are identified. The bones are unremarkable. Impression: No acute findings
--- NOTE | 2017-05-30 15:20 | 48 Hour Post Anesthesia Eval ---
Post Anesthesia Evaluation Procedure: Bilateral excision of necrotic tissue lower back Date of Evaluation: May 30, 2017 Time of Evaluation: 15:20 Blood Pressure Systolic: 107 0: 61 Pulse Rate: 96 Respiratory Rate: 18 Temperature (Fahrenheit): 99 O2 Sat by Pulse Oximetry: 99 Airway: patent Nausea: No Vomiting: No Pain Intensity: 3 Hydration Status: adequate Cardiopulmonary Status: Stable Mental Status/LOC: patient returned to baseline Follow-up Care/Observations: 0 Post-Anesthesia Complications: 0 Follow-up care needed: N/A Irwin Guan MD May 30, 2017 15:20
[2017-05-30 15:43] VITALS: BP 119/69
[2017-05-30] MEDS ORDERED: guaiFENesin 100mg/5ml Liq ud ORAL PRN (17:00)
[2017-05-30 20:00] VITALS: BP 122/94
[2017-05-30] MEDS: DiphenhydrAMINE 50mg/ml Inj IVP PRN (20:31)
[2017-05-31] VITALS: BP 115/68
--- NOTE | 2017-05-31 02:15 | Operative Note - Dictated ---
DATE OF OPERATION: 05/29/2017 NOTE: POOR AUDIO SURGEON: Brian Zapien M.D. FIELD EVIDENCE TECHNICIAN SURGEON: Delmy Caldera M.D. ANESTHESIOLOGIST: Joe Oakley M.D. ANESTHESIA: General endotracheal tube anesthesia. PREOPERATIVE DIAGNOSES: 1. Open bilateral buttock wound, status post radical debridement and resection of necrotic soft tissue. 2. Bilateral buttock, hip, and back necrotic soft tissue secondary to foreign body reaction. 3. Cellulitis of bilateral buttocks. POSTOPERATIVE DIAGNOSES: 1. Open bilateral buttock wound, status post radical debridement and resection of necrotic soft tissue. 2. Bilateral buttock, hip, and back necrotic soft tissue secondary to foreign body reaction. 3. Cellulitis of bilateral buttocks. PROCEDURE PERFORMED: 1. Staged radical partial debridement of foreign bodies from the lumbar back as well as bilateral buttocks and hips. 2. Radical resection of 400 square centimeters of right hip necrotic soft tissue mass. 3. Radical resection of 180 square centimeters of left hip necrotic soft tissue mass. 4. Lumbar spine fasciocutaneous advancement flap. 5. Right gluteal fasciocutaneous advancement flap. 6. Left gluteal fasciocutaneous advancement flap. 7. Complex closure of 60 cm open back wound. INDICATION FOR PROCEDURE: This is a 31-year-old female, who was previously operated on three days prior. In the interim, the patient has been treated with a wound VAC therapy. On the floor, her vitals had remained stable. Her hemoglobin has been slowly coming down. She has been on IV antibiotics for cellulitis. Today, the plan is to take the patient back for planned second stage work for further debridement of necrotic soft tissue from bilateral buttocks and hips and removal of foreign material and fasciocutaneous advancement flap closure over drains. Risks and benefits of the operation were fully discussed with the patient in the previous operation and they were reiterated in the holding area today and the patient signed informed consent. DESCRIPTION OF THE PROCEDURE: The patient was taken to the operating room in the supine position and placed under general endotracheal tube anesthesia. Perioperative antibiotics were confirmed. SCDs were placed on bilateral lower extremities. She was prepped and draped in the usual position and after she was flipped into prone position and after appropriate positioning and padding of the arms and the rest of the body. We removed the wound VAC that was placed prior initially. There was significant necrosis full-thickness skin loss to bilateral skin flaps. Thus, our reasoning in delaying the flaps was appropriate. There was about 7 cm long x 8 cm wide of full-thickness skin loss on bilateral lateral buttock flaps, which would have to be debrided. After the area was prepped and draped in the usual clean and sterile manner, we used Ioban dressing and blue towel to block the anus for any bowel flow. We started the operation by exploring for any bleeding. There was nothing significant. We then started the operation by cutting out some more skin from bilateral buttock flaps including the necrotic tissue with a #10 scalpel. Symmetric markings were made. Using a #10 scalpel, we cut through the skin and electrocautery to remove and dissected down to the deep muscle fascia. With the aid of a lighted retractor, we further elevated two flaps inferiorly of bilateral buttocks. We did this all the way down to the inferior gluteal crease. We also elevated the flaps laterally onto the anterior lateral hips and the plan of dissection just above the deep muscle fascia of the lateral hip muscle as well as the gluteus jose muscle. We then debrided more foreign material and necrotic soft tissue from bilateral buttocks and hips. There was 400 square centimeters of right hip necrotic soft tissue mass as well as 180 square centimeters of left buttock necrotic soft tissue mass, which was debrided with a combination of electrocautery and scalpel and scissor technique. These specimens were sent to the laboratory. We made sure we obtained hemostasis with electrocautery. The bilateral gluteus jose muscles, which were partially necrotic, were debrided. We palomares-picked through the muscle, popped and silicone granulomas that were just below the dermis and the curved Parker within the skin flaps to remove some more of the foreign materials and it would be impossible as the patient to remove all the foreign material since it was right up to the level of the dermis. So, we tried to make the flaps as even as possible. After doing this and ensuring hemostasis, the pulse jet lavage was irrigated with 2 liters of antibiotic irrigation. We then incised the deep fascia and advanced three fasciocutaneous flaps. There were bilateral gluteus flaps that were inferiorly based as well as the lumbar spine fasciocutaneous flap that was superiorly based. We then did advancement flap closure technique with progressive tension suturing with the #0 PDS sutures to close the space, but when we cut the muscle flaps, we incised the deep muscle fascia and we maintained axial blood supply to the three fasciocutaneous flaps. With a #0 PDS progressive tension suturing techniques, we were able to close some of the space. We also left five drains. We left two #19-[place] Jeff drains in the dependent position in each buttock and two 10 mm flat Jeff drains in the superior portion of the buttock and one 10 mm Jeff drain underneath the back flap and these were taken out through separate anterior lateral stab incisions on the hip. The drains were secured in place with 2-0 silk sutures. After doing this, there were some dog ears that had to be accounted for. So, a back cut was made on bilateral lateral hips and significant amount of skin was then further resected with a #10 blade and electrocautery. An acceptable contour was achieved. We were then left with a 16 cm of long incision. We used #0 Vicryl sutures to line up and approximate the Israel fascia in interrupted fashion. We used #0 Vicryl and 2-0 Vicryl sutures to line up and approximate the deep dermis in interrupted fashion and we used 3-0 Monocryl sutures in the subcuticular layer. After doing this, skin closed with minimal tension, especially since there was significant amount of skin debridement secondary to the necrotic skin from her first operation. Prevena incisional wound VAC was placed on top of the wounds and set to 125 mmHg. There was good capillary refill to the skin flaps prior to putting the VAC on and minimal tension. We were pleased with the results. She was then flipped over into the supine position, extubated, and transferred to the recovery room in stable condition. FINDINGS: As above. SPECIMENS: Left and right buttock and hip necrotic soft tissue as well as skin from the back and buttocks. ESTIMATED BLOOD LOSS: 250 mL. DRAINS: A 19-[place] Jeff x2 and 10 mm Jeff x3 in the buttocks and the back. COMPLICATIONS: None. CONDITION: Stable. Brian Zapien M.D. DR: JAYJAY JOB#: [id number] CC:
[2017-05-31 04:00] VITALS: BP 98/73
[2017-05-31] MEDS: Ampicillin/Sulbactam Sod 3 GM in NS 110 ML IVPB SCH ×3 (06:15→22:03)
[2017-05-31] MEDS: Heparin 5000 units/ml inj SUBQ SCH ×3 (06:16→22:04)
[2017-05-31] MEDS: PCA shift volume MISC SCH (07:00)
[2017-05-31 07:27] LABS: BASOPHILS % (AUTO) 0.7 % (0.0-2.0); EOSINOPHILS % (AUTO) 1.7 % (0.0-3.0); HEMOGLOBIN 8.7 G/DL (12.0-16.0); LYMPHOCYTES % (AUTO) 26.3 % (20.0-45.0); MEAN CORPUSCULAR VOLUME 90 FL (80-99); MONOCYTES % (AUTO) 10.4 % (1.0-10.0); PLATELET COUNT 198 K/UL (150-450); RED BLOOD COUNT 2.89 M/UL (4.20-5.40); RED CELL DISTRIBUTION WIDTH 13.8 % (11.6-14.8); WHITE BLOOD COUNT 9.7 K/UL (4.8-10.8)
[2017-05-31 07:33] LABS: ANION GAP 7 mmol/L (5-15); BLOOD UREA NITROGEN 4 mg/dL (7-18); CALCIUM 8.4 MG/DL (8.5-10.1); CARBON DIOXIDE 27 MMOL/L (21-32); CHLORIDE 104 MMOL/L (98-107); CREATININE 0.7 MG/DL (0.55-1.30); POTASSIUM 3.7 MMOL/L (3.5-5.1); SODIUM 138 MMOL/L (136-145)
[2017-05-31 08:00] VITALS: BP 103/59
[2017-05-31] MEDS: Docusate 100mg cap ORAL SCH ×2 (08:30→20:03)
[2017-05-31] MEDS: DiphenhydrAMINE 50mg/ml Inj IVP PRN (08:35)
[2017-05-31 12:00] VITALS: BP 122/82
--- NOTE | 2017-05-31 15:30 | Discharge Summary ---
Discharge Summary Hospital Course Date of Admission May 25, 2017 at 13:23 Date of Discharge Admitting Diagnosis abscess buttock HPI Jeannette Ortiz is a 31 year old female who was admitted on May 25, 2017 at 13:23 for cellulitis of Buttock d/c summary dictated [id number] Discharge Discharge Disposition Patient was discharged to Discharge Diagnoses: KANCHAN CHOUDHURY M.D. May 31, 2017 15:30
--- NOTE | 2017-05-31 15:39 | Discharge Instructions ---
Discharge Instructions Discharge Instructions Follow up with: Dr. Caldera in 1 wk Call MD/Return to Hospital if: fevers, worsening pain Diet: regular For Congestive Heart Failure Reminder Report to your physician any weight gain of 5 pounds or more in one week. KANCHAN CHOUDHURY M.D. May 31, 2017 15:39
[2017-05-31] MEDS ORDERED: Sodium Chloride 500ML 500 ML IV ONE (15:45)
[2017-05-31 16:00] VITALS: BP 114/76
[2017-05-31 20:04] VITALS: BP 95/63
[2017-06-01] VITALS: BP 109/62
[2017-06-01 03:47] VITALS: BP 112/64
--- NOTE | 2017-06-01 05:15 | Discharge Summary ---
DATE OF ADMISSION: 05/25/2017 DATE OF DISCHARGE: 05/31/2017 PROCEDURES DONE HERE: Open bilateral stage radical partial debridement of foreign bodies from lumbar back as well as bilateral buttocks and hips; radical resection of right hip necrotic soft tissue mass; radical resection of left hip necrotic soft tissue mass, and lumbar spine/right gluteal/left gluteal advancement flaps created. HISTORY OF PRESENT ILLNESS: This is a 31-year-old female with history of silicone injection to the gluteal region bilaterally in 2012, asthma, who presented to the emergency room for worsening pain over the lower back and buttocks. She was started on antibiotics for gluteal cellulitis. She was seen by plastic surgery for soft tissue necrosis on MRI and taken for debridement. The patient had a wound VAC placed over her incision postoperatively. Postoperative course was uneventful. Her pain was well controlled. DISCHARGE CONDITION: Stable. DISCHARGE INSTRUCTIONS: The patient to follow up with Dr. Caldera in one week. The patient being discharged home with Percocet 5/325 one tablet every 4 to 6 hours p.r.n. pain and Cipro 500 mg p.o. b.i.d. x2 weeks. The patient to return to the hospital for worsening condition or symptoms. Wound VAC to be exchanged before the patient leaves. DISCHARGE DIAGNOSES: 1. Gluteal soft tissue necrosis with cellulitis, status post stage debridement. 2. Asthma. TIME SPENT ON DISCHARGE: Greater than 35 minutes. Tremaine Welsh MD DR: MEHRAN/AMY JOB#: [id number] CC:
[2017-06-01] MEDS: Ampicillin/Sulbactam Sod 3 GM in NS 110 ML IVPB SCH ×2 (06:16→14:00)
[2017-06-01] MEDS: Heparin 5000 units/ml inj SUBQ SCH ×2 (06:17→14:00)
[2017-06-01 08:00] VITALS: BP 110/66
[2017-06-01] MEDS: Docusate 100mg cap ORAL SCH (08:21)
[2017-06-01 12:00] VITALS: BP 109/62
[2017-06-01 16:00] VITALS: BP 124/85
[2017-06-02] MEDS ORDERED: BENADRYL25 MG ORAL (21:38)
[2017-06-02] MEDS ORDERED: DOXYCYCLINE MO100 MG ORAL (21:38)
== END 2017-06-01 18:20 | disposition home or self-care (01) | DRG 574 ==
LOC: EMR 12:50 → 4W 13:23 → EDBEDREQ 15:51 → 4W 21:45
PROC: 0KBF0ZZ Excision of Right Trunk Muscle, Open Approach (ICD-10-PCS; principal; 2017-05-26 13:15)
PROC: 2W1PX6Z Compression of Left Upper Leg using Pressure Dressing (ICD-10-PCS; principal; 2017-05-26 13:15)
PROC: 0KBG0ZZ Excision of Left Trunk Muscle, Open Approach (ICD-10-PCS; principal; 2017-05-26 13:15)
PROC: 0JB70ZZ Excision of Back Subcutaneous Tissue and Fascia, Open Approach (ICD-10-PCS; principal; 2017-05-26 13:15)
PROC: 0KBN0ZZ Excision of Right Hip Muscle, Open Approach (ICD-10-PCS; principal; 2017-05-26 13:15)
PROC: 0JX90ZC Transfer Buttock Subcutaneous Tissue and Fascia with Skin, Subcutaneous Tissue and Fascia, Open Approach (ICD-10-PCS; principal; 2017-05-26 13:15)
PROC: 0KBP0ZZ Excision of Left Hip Muscle, Open Approach (ICD-10-PCS; principal; 2017-05-26 13:15)
PROC: 0JB90ZZ Excision of Buttock Subcutaneous Tissue and Fascia, Open Approach (ICD-10-PCS; principal; 2017-05-26 13:15)
PROC: 0JX70ZC Transfer Back Subcutaneous Tissue and Fascia with Skin, Subcutaneous Tissue and Fascia, Open Approach (ICD-10-PCS; principal; 2017-05-26 13:15)
PROC: 2W1NX6Z Compression of Right Upper Leg using Pressure Dressing (ICD-10-PCS; principal; 2017-05-26 13:15)
PROC: 0JBM0ZZ Excision of Left Upper Leg Subcutaneous Tissue and Fascia, Open Approach (ICD-10-PCS; 2017-05-29)
PROC: 2W15X6Z Compression of Back using Pressure Dressing (ICD-10-PCS; 2017-05-29)
PROC: 0JB70ZZ Excision of Back Subcutaneous Tissue and Fascia, Open Approach (ICD-10-PCS; 2017-05-29)
PROC: 2W1PX6Z Compression of Left Upper Leg using Pressure Dressing (ICD-10-PCS; 2017-05-29)
PROC: 2W1NX6Z Compression of Right Upper Leg using Pressure Dressing (ICD-10-PCS; 2017-05-29)
PROC: 0JBL0ZZ Excision of Right Upper Leg Subcutaneous Tissue and Fascia, Open Approach (ICD-10-PCS; 2017-05-29)
PROC: 0JX90ZC Transfer Buttock Subcutaneous Tissue and Fascia with Skin, Subcutaneous Tissue and Fascia, Open Approach (ICD-10-PCS; 2017-05-29)
PROC: 0JX70ZC Transfer Back Subcutaneous Tissue and Fascia with Skin, Subcutaneous Tissue and Fascia, Open Approach (ICD-10-PCS; 2017-05-29)
PROC: 0JQ70ZZ Repair Back Subcutaneous Tissue and Fascia, Open Approach (ICD-10-PCS; 2017-05-29)
PROC: 0JB90ZZ Excision of Buttock Subcutaneous Tissue and Fascia, Open Approach (ICD-10-PCS; 2017-05-29)
DX: L03.317 Cellulitis of buttock (principal); I96 Gangrene, not elsewhere classified; M79.5 Residual foreign body in soft tissue; J45.909 Unspecified asthma, uncomplicated; R52 Pain, unspecified; M60.28 Foreign body granuloma of soft tissue, not elsewhere classified, other site
CPT/HCPCS: 36415; 71045; 72148; 72195; 80048; 80053; 81003; 81025; 82550; 82553; 82784; 83605; 83690; 83735; 85025; 85613; 85651; 85730; 86039; 86140; 86162; 86235; 86334; 86360; 86431; 86850; 86900; 86901; 86920; 87040; 87070; 87075; 87205; 93005; 94003; 94150; 94640; 94664; 99285; J2250; J2405; J2710; J8499

== ENCOUNTER 2017-06-02 21:04 | Emergency (ER) | payer OTHER ==
[~2017-06-02] VITALS: Ht 160 cm; Wt 72.6 kg
[~2017-06-02 21:04] MED LIST: ALBUTEROL SULF8.5 GM INH
[2017-06-02 21:20] VITALS: BP 126/77
[2017-06-02] MEDS ORDERED: BENADRYL25 MG ORAL (21:38)
[2017-06-02] MEDS ORDERED: DOXYCYCLINE MO100 MG ORAL (21:38)
--- NOTE | 2017-06-02 21:38 | Emergency Room Report ---
History of Present Illness General Chief Complaint: Allergic Reaction Source: Patient Present Illness HPI Is a 31-year-old female who was just recently discharged from the hospital after week stay. She had surgical removal of buttock implants bilaterally. She also had debridement of necrotic tissue. She was discharged and Cipro. She forgot that she is allergic to Cipro. She presents with chief complaint of allergic reaction. She said her fingers and feet locked up. No nausea no vomiting. No rash or itchiness. Star like her throat may be closing. Denies any other complaint. Allergies: Coded Allergies: CLINDAMYCIN (Verified Allergy, Severe, Rash, 05/25/17) SULFAMETHOXAZOLE (Verified Allergy, Severe, Rash, 05/25/17) TRIMETHOPRIM (Verified Allergy, Severe, Rash, 05/25/17) Patient History Past Medical History: see triage record, old chart reviewed Past Surgical History: other Pertinent Family History: none Social History: Denies: smoking Last Menstrual Period: may 27 Now: No Immunizations: other Reviewed Nursing Documentation: PMH: Agreed, PSxH: Agreed Nursing Documentation-PMH Hx Cardiac Problems: No Hx Asthma: Yes Hx Cancer: No Hx Gastrointestinal Problems: No Hx Neurological Problems: No Review of Systems Eye: Denies: eye pain, blurred vision ENT: Denies: ear pain, nose congestion, throat swelling Respiratory: Denies: cough, shortness of breath Cardiovascular: Denies: chest pain, palpitations Gastrointestinal: Denies: abdominal pain, diarrhea, nausea, vomiting Musculoskeletal: Denies: back pain, joint pain Skin: Denies: rash Neurological: Denies: headache, numbness Endocrine: Denies: increased thirst, increased urine Hematologic/Lymphatic: Denies: easy bruising All Other Systems: negative except mentioned in HPI Physical Exam Vital Signs Date Time Temp Pulse Resp B/P (MAP) Pulse Ox O2 Delivery O2 Flow Rate FiO2 06/02/17 21:12 98.9 96 18 126/77 98 Room Air 99.0 vitals normal Sp02 EP Interpretation: reviewed, normal General Appearance: well appearing, no apparent distress, alert Head: normocephalic, atraumatic Eyes: bilateral eye PERRL, bilateral eye EOMI ENT: hearing grossly normal, normal pharynx Neck: full range of motion, supple, no meningismus Respiratory: chest non-tender, lungs clear, normal breath sounds Cardiovascular #1: regular rate, rhythm, no murmur Gastrointestinal: normal bowel sounds, non tender, no mass, no organomegaly, no bruit, non-distended Musculoskeletal: back normal, gait/station normal, normal range of motion Psychiatric: mood/affect normal Skin: warm/dry Medical Decision Making Diagnostic Impression: Primary Impression: Allergic reaction Qualified Codes: T78.40XA - Allergy, unspecified, initial encounter ER Course Patient with a possible allergic reaction. I see no evidence of allergic reaction based on physical exam. No rest or issue. No tongue edema. No stridor or wheezing. This may be a side effect versus anxiety. We'll discharge home. I will switch her to doxycycline which she has taken in the past. Last Vital Signs Date Time Temp Pulse Resp B/P (MAP) Pulse Ox O2 Delivery O2 Flow Rate FiO2 06/02/17 21:12 98.9 96 18 126/77 98 Room Air 99.0 Status: improved Disposition: HOME, SELF-CARE Condition: Stable Scripts Doxycycline Monohydrate* (DOXYCYCLINE MONOHYDRATE*) 100 Mg Capsule 100 MG ORAL Q12H, #14 CAP 0 Refills Prov: FIORDALIZA LOWRY M.D. 06/02/17 Diphenhydramine Hcl* (BENADRYL*) 25 Mg Capsule 50 MG ORAL Q6H Y for Itching, #30 CAP Prov: FIORDALIZA LOWRY M.D. 06/02/17 Patient Instructions: Drug Allergy Additional Instructions: Followup with your surgeon as scheduled on Monday. Return if symptom worsen. Benadryl as needed for allergic reaction. FIORDALIZA LOWRY M.D. Jun 02, 2017 21:38
[2017-06-02 22:00] VITALS: BP 118/74
[2017-06-02] MEDS ORDERED: DiphenhydrAMINE 50mg/ml Inj IM ONE (22:00)
[2017-06-02 22:10] VITALS: BP 118/74
== END 2017-06-02 22:09 | disposition home or self-care (01) ==
LOC: EMR 21:30
DX: T78.40XA Allergy, unspecified, initial encounter (principal); X58.XXXA Exposure to other specified factors, initial encounter; Y93.9 Activity, unspecified; Y92.9 Unspecified place or not applicable; Z88.8 Allergy status to other drugs, medicaments and biological substances
CPT/HCPCS: 96372; 99284; J1200